=== PATIENT | female | born 1955 | race American Indian/Alaskan Native ===

== ENCOUNTER 2017-01-25 03:22 | Inpatient (IN) | payer MEDICARE, MEDICAID ==
[2017-01-25 03:22] VITALS: BMI 42.2
--- NOTE | 2017-01-25 03:37 | C.PDOC ---
History Of Present Illness The patient presents to the ED as a transfer from [facility]. Patient has been medically cleared under diagnosis of depression and has been accepted by Dr. Perry. Patient denies suicidal/homicidal ideation at this time. Time Seen by Provider: 01/25/17 03:35 Chief Complaint (Nursing): Psychiatric Evaluation History Per: Patient History/Exam Limitations: no limitations Onset/Duration Of Symptoms: Hrs Current Symptoms Are (Timing): Still Present Suicide/Self Injury Attempted (Context): None Modifying Factor(s): None Severity: Mild Pain Scale Rating Of: 2 Associated Symptoms: Depression. denies: Suicidal Thoughts, Suicidal Plan Involuntary Hold By: None Recent travel outside of the [place]: No Additional History Per: Patient Past Medical History Reviewed: Historical Data, Nursing Documentation, Vital Signs Vital Signs: Last Vital Signs Temp 98.2 F 01/25/17 03:29 Pulse 67 01/25/17 03:29 Resp 18 01/25/17 03:29 BP 122/68 01/25/17 03:29 Pulse Ox 98 01/25/17 03:44 - Medical History PMH: Anxiety, Arthritis, Depression, Gall Bladder Disease (gall stones), HTN Surgical History: Cholecystectomy - [facility] GROUP PSYCHOTHERAPY (07/07/16) INDIVIDUAL PSYCHOTHERAPY, COGNITIVE-BEHAVIORAL (07/07/16) MEDICATION MANAGEMENT (05/10/16) Family History: States: Unknown Family Hx - Social History Hx Alcohol Use: No Hx Substance Use: No - Immunization History Hx Tetanus Toxoid Vaccination: No Hx Influenza Vaccination: No Hx Pneumococcal Vaccination: No Review Of Systems Constitutional: Negative for: Fever, Chills Cardiovascular: Negative for: Chest Pain Respiratory: Negative for: Shortness of Breath Gastrointestinal: Negative for: Abdominal Pain Skin: Negative for: Rash, Lesions, Jaundice, Bruising Neurological: Negative for: Weakness, Numbness Psych: Positive for: Depression. Negative for: Suicidal ideation Physical Exam - Physical Exam Appears: Non-toxic, No Acute Distress Skin: Warm, Dry Head: Normacephalic Eye(s): bilateral: Normal Inspection Neck: Supple Chest: Symmetrical Cardiovascular: Rhythm Regular, No Murmur Respiratory: No Accessory Muscle Use Extremity: Normal ROM Neurological/Psych: Oriented x3 Gait: Steady ED Course And Treatment O2 Sat by Pulse Oximetry: 98 (on RA) Pulse Ox Interpretation: Normal Disposition Discussed With DrJamia: Cody Perry Comment: accepted the pt on his service and took over the care at 3:35 AM Doctor Will See Patient In The: Hospital Counseled Patient/Family Regarding: Studies Performed, Diagnosis - Disposition Referrals: Non [facility] Provider, [Primary Care Provider] - Disposition: HOSPITALIZED Disposition Time: 03:35 Condition: FAIR Forms: [facility] (Greek) - Clinical Impression Clinical Impression: Major depression - Scribe Statement The provider has reviewed the documentation as recorded by the Scribe (Regina García) Provider Attestation: All medical record entries made by the Scribe were at my direction and personally dictated by me. I have reviewed the chart and agree that the record accurately reflects my personal performance of the history, physical exam, medical decision making, and the department course for this patient. I have also personally directed, reviewed, and agree with the discharge instructions and disposition. Decision To Admit - Pt Status Changed To: Hospital Disposition Of: Inpatient - Admit Certification Admit to Inpatient:: After my assessment, the patient will require hospitalization for at least two midnights. This is because of the severity of symptoms shown, intensity of services needed, and/or the medical risk in this patient being treated as an outpatient. - InPatient: Physician Admission Certification: I certify that this patient requires 2 or more midnights of care for the following reason:: After my assessment, the patient will require hospitalization for at least two midnights. This is because of the severity of symptoms shown, intensity of services needed, and/or the medical risk in this patient being treated as an outpatient. - . Bed Request Type: Psychiatry Admitting Physician: Cody Perry Patient Diagnosis: Major depression
--- NOTE | 2017-01-25 05:29 | PCM.BM ---
<Kevin Harris - Last Filed: 01/25/17 05:26> Treatment Plan Problems - Problems identified on initial assessmt Depression Date Initiated: 01/25/17 Time Initiated: 04:45 Assessment reference: NA Status: Active Suicidal Ideation Date Initiated: 01/25/17 Time Initiated: 04:45 Assessment reference: NA Status: Active Treatment assets and liabiliti Patient Assests: adapts well, cooperative, motivated, self-reliant, ADL independent, negotiates basic needs, cognitively intact Patient Liabilities: physical pain, financial problems, poor support system, dietary restrictions, medical problems - Milieu Protocol Maintain good personal hygiene: daily Encourage regular showers, daily Remind patient to perform daily oral care, daily Assist patient to perform ADL's Maintain personal safety: every shift Educate patient to report safety concerns to staff, every shift Monitor environment for contraband/sharps Medication safety: Monitor for expected outcome, potential side effects: every shift, Assess barriers to learning: every shift, Assess readiness for medication education: every shift <Ernestina Lopez - Last Filed: 01/25/17 11:08> Family Contact Family involvement: Famliy/SO not involved - Goals for Treatment Patient goals for treatment: "I need help with my depression." Discharge/Continuing Care - Education Needs Education Needs: Patient Medication, Patient Coping Skills - Discharge Discharge Criteria: Tolerates medication w/o severe side effects, Free of Suicidal thoughts, Reduction of target symptoms Discharge to:: Home - Treatment Team Participation Discussed with Family/SO: No Was Patient/Family/SO present at Treatment Team Meeting: Yes <Cody Perry - Last Filed: 01/25/17 11:12> - Diagnosis (1) Major depression Status: Acute Interventions: 01/25/17 11:12 * Assess/adjust medications daily and /or as needed * See patient on an individual basis 7x/week to assess level of depressive behaviors and stability * Discuss risks, benefits, side effects and alternatives of medications *
--- NOTE | 2017-01-25 11:05 | PCM.PSYCH ---
Initial Psychiatric Evaluation - Initial Psychiatric Evaluation Type of Admission: Voluntary Legal Status: Capacity Chief Complaint (in patient's own words): "I'm anxious and depressed." History of Present Illness and Precipitating Events: Pt. is seen, chart reviewed, case discussed with staff. Pt. is a 61 y/o female who is a transfer from [facility] for depression. Pt. states she always had depression and anxiety, and her condition became worse during the past month when her landlord demanded she move out of the house by 01/27/17. Pt. has history of 3 hospitalizations for depression and anxiety: [place] [facility] [place] last year and [facility] [place] ago ( unspecified). Pt. states she is unable to sleep and feels hopeless and helpless. She reports to having racing thoughts. Pt. denies any change in her interest and denies elevated mood. Pt. denies visual and auditory hallucinations and denies homicidal ideation. She admits to having suicidal ideation just last week, but did not follow through with a plan. She claims she attempted suicide once 1.5 yrs. ago, when she tried to overdose on her pills. Pt. denies use of heroin, cocaine, and marijuana, cigarettes, and alcohol. After care discussed. Pt. says the most important task is to find new housing. PMHx: arthritis (uses cane), DM, HTN, UTI, cataracts Past Psych Hx: 3 inpatient--[facility], [facility] Fam Hx: denies, except nephew has drug-related problems Allergies: denies Social: ; 4 children (49, 44, 42, 31 y/o); lives alone; unemployed Past Psychiatric History - Past Psychiatric History Previous Treatment History: Inpatient Pertinent Medical Hx (Current Medical&Sleep Prob, Allergies): Allergies Allergy/AdvReac Type Severity Reaction Status Date / Time No Known Allergies Allergy Verified 01/25/17 03:28 No Known Home Med 01/24/17 Review of Systems - Review of Systems All systems: reviewed and no additional remarkable complaints except - Psychiatric Psychiatric: Anxiety, Depression, Irritability, Suicidal Ideation Mental Status Examination - Personal Presentation Personal Presentation: Looks stated age - Affect Affect: Constricted, Depressed - Motor Activity Motor Activity: Calm - Reliability in Providing Information Reliability in Providing Information: Good - Speech Speech: Organized - Mood Mood: Depressed, Anxious - Formal Thought Process Formal Thought Process: No Impairment - Obsessions/Compulsions Obsessions: No Compulsions: No - Cognitive Functions Orientation: Person, Place, Situation, Time Sensorium: Alert Attention/Concentration: Attentive Abstract Thinking: Holmen Estimate of Intelligence: Below average Judgement: Imparied, as evidence by: Poor judgement, Imparied, as evidence by: Lack of insight into illness - Risk Risk: Suicidal, Diminished functioning - Limitations Limitations: Living alone DSM 5 DX - DSM 5 DSM 5 Diagnosis: Major depressive disrordr recurrent moderate - Recommended/Plan of Treatment Treatment Recommendations and Plan of Treatment: Major depressive disorder recurrent moderate CBT Psychoeducation Supportive therapy, group therapy, individual therapy Paxil 10 mg PO QAM Neurontin 100 mg PO TID Atarax 25 mg PO Q6 PRN Trazodone 50 mg PO HS - Smoking Cessation Smoking Cessation Initiated: No
--- NOTE | 2017-01-26 10:08 | PCM.PYCHPN ---
Psychiatric Progress Note - Psychiatric Progress Note Patient seen today, length of contact: 15 min. Patient Chief Complaint: "I don't feel good today." Problems Identified/Issues Discussed: Pt. is seen, chart reviewed, and case discussed with staff. Pt. reports she slept well though the night, but woke up "not feeling so great. " No new symptoms reported, improving slowly, and needs more time to stabilize. No SEs from medications, risks discussed. After care discussed. Pt. will be discharged to [place]. Medication Change: Yes (start Paxil) Medical Record Reviewed: Yes Mental Status Examination - Cognitive Function Orientation: Person, Place, Situation, Time Memory: Intact Attention: Poor Concentration: Poor Association: WNL Fund of Knowledge: WNL - Mood Mood: Depressed, Anxious - Affect Affect: Constricted, Depressed - Speech Speech: Appropriate - Formal Thought Process Formal Thought Process: No Impairment - Suicidal Ideation Suicidal Ideation: Yes - Homicidal Ideation Homicidal Ideation: No Goal/Treatment Plan - Goal/Treatment Plan Need for Continued Stay: Remain at risks for inpatient hospitalization, Severe depression anxiety, Discharge may exacerbated symptoms Progress Toward Problem(s) and Goals/Treatment Plan: Major depressive disorder recurrent moderate CBT Psychoeducation Supportive therapy, group therapy, individual therapy Paxil 10 mg PO QAM Neurontin 100 mg PO TID Atarax 25 mg PO Q6 PRN Trazodone 50 mg PO HS
--- NOTE | 2017-01-27 10:54 | PCM.PYCHPN ---
Psychiatric Progress Note - Psychiatric Progress Note Patient seen today, length of contact: 15 min. Patient Chief Complaint: "I don't feel good today." Problems Identified/Issues Discussed: Pt. is seen, chart reviewed, and case discussed with staff. Pt. reports some improvement in her depressed mood and feelings of hopelessness. She reports improvement in her sleep. No new symptoms reported, improving slowly, and needs more time to stabilize. No SEs from medications, risks discussed. After care discussed. Pt. will be discharged to [place]. Medication Change: No (start Paxil) Medical Record Reviewed: Yes Mental Status Examination - Cognitive Function Orientation: Person, Place, Situation, Time Memory: Intact Attention: Poor Concentration: Poor Association: WNL Fund of Knowledge: WNL - Mood Mood: Depressed, Anxious - Affect Affect: Constricted, Depressed - Speech Speech: Appropriate - Formal Thought Process Formal Thought Process: No Impairment - Suicidal Ideation Suicidal Ideation: Yes - Homicidal Ideation Homicidal Ideation: No Goal/Treatment Plan - Goal/Treatment Plan Need for Continued Stay: Remain at risks for inpatient hospitalization, Severe depression anxiety, Discharge may exacerbated symptoms Progress Toward Problem(s) and Goals/Treatment Plan: Major depressive disorder recurrent moderate CBT Psychoeducation Supportive therapy, group therapy, individual therapy Paxil 10 mg PO QAM Neurontin 100 mg PO TID Atarax 25 mg PO Q6 PRN Trazodone 50 mg PO HS - Smoking Cessation Smoking Cessation Initiated: No
--- NOTE | 2017-01-28 18:43 | PCM.PYCHPN ---
Psychiatric Progress Note - Psychiatric Progress Note Patient seen today, length of contact: 15 min. Patient Chief Complaint: I'm feeling better, less depressed. Problems Identified/Issues Discussed: Patient seen. Chart reviewed. Case discussed with the staff. Issues related to illness and treatment were discussed with the patient. Reported compliant with treatment with no adverse affects. Tolerating treatment very well. Reported feeling better, less depressed, socializing, attending groups. Complaining about the some sleep difficulty. At the time of evaluation, patient was awake alert oriented 3, had no delusions , no auditory visual hallucinations, no suicidal ideations or homicidal ideations. Medical Problems: arthritis (uses cane), DM, HTN, UTI, cataracts Diagnostic Results: Reviewed DSM 5 Symptoms Update: Improving with treatment Medication Change: No Medical Record Reviewed: Yes Mental Status Examination - Cognitive Function Orientation: Person, Place, Situation, Time Memory: Intact Attention: WNL Concentration: WNL Association: WNL Fund of Knowledge: [facility] Decription of patient's judgement and insights: Fair - Mood Mood: Depressed (Less than before) - Affect Affect: Depressed - Speech Speech: Appropriate - Formal Thought Process Formal Thought Process: No Impairment - Suicidal Ideation Suicidal Ideation: No - Homicidal Ideation Homicidal Ideation: No Goal/Treatment Plan - Goal/Treatment Plan Need for Continued Stay: Remain at risks for inpatient hospitalization, Discharge may exacerbated symptoms, Severe functional impairment Progress Toward Problem(s) and Goals/Treatment Plan: Patient education Supportive therapy Continue treatment as before Estimated Date of D/C: 02/01/17 - Smoking Cessation Smoking Cessation Initiated: No
--- NOTE | 2017-01-29 14:42 | PCM.PYCHPN ---
Psychiatric Progress Note - Psychiatric Progress Note Patient seen today, length of contact: 15 min. Patient Chief Complaint: I'm feeling better, less depressed. Problems Identified/Issues Discussed: Patient seen. Chart reviewed. Case discussed with the staff. Issues related to illness and treatment were discussed with the patient. Reported compliant with treatment with no adverse affects. Tolerating treatment very well. Reported feeling better, less depressed, socializing, attending groups. At the time of evaluation, patient was awake alert oriented 3, had no delusions , no auditory visual hallucinations, no suicidal ideations or homicidal ideations. Medical Problems: arthritis (uses cane), DM, HTN, UTI, cataracts Diagnostic Results: Reviewed DSM 5 Symptoms Update: Improving with treatment Medication Change: No Medical Record Reviewed: Yes Mental Status Examination - Cognitive Function Orientation: Person, Place, Situation, Time Memory: Intact Attention: WNL Concentration: WNL Association: WNL Fund of Knowledge: [facility] Decription of patient's judgement and insights: Fair - Mood Mood: Depressed - Affect Affect: Depressed - Speech Speech: Appropriate - Formal Thought Process Formal Thought Process: No Impairment Psychotic Thoughts and Behaviors: None - Suicidal Ideation Suicidal Ideation: No - Homicidal Ideation Homicidal Ideation: No Goal/Treatment Plan - Goal/Treatment Plan Need for Continued Stay: Remain at risks for inpatient hospitalization, Discharge may exacerbated symptoms, Severe functional impairment Progress Toward Problem(s) and Goals/Treatment Plan: Patient education Supportive therapy Continue treatment as before Estimated Date of D/C: 02/01/17 - Smoking Cessation Smoking Cessation Initiated: No
--- NOTE | 2017-01-30 22:01 | PCM.PYCHPN ---
Psychiatric Progress Note - Psychiatric Progress Note Patient seen today, length of contact: 15 min. Patient Chief Complaint: "Today I felt suicidal" Problems Identified/Issues Discussed: The pt is seen, chart reviewed, case discussed with staff. Support given, CBT used How to cope with SI discussed - no plans or intentions She is likely stressed bc of d/c soon as she says she is likely homeless now She is also improving slowly and needs more time No SEs from medications, risks discussed. After care discussed Medication Change: Yes (increase paxil) Medical Record Reviewed: Yes Mental Status Examination - Cognitive Function Orientation: Person, Place, Situation, Time Memory: Intact Attention: WNL Concentration: WNL Association: WNL Fund of Knowledge: WNL - Mood Mood: Depressed - Affect Affect: Depressed - Speech Speech: Appropriate - Formal Thought Process Formal Thought Process: No Impairment - Suicidal Ideation Suicidal Ideation: No Plan: no SI as we spoke but she had some recently, no plans/intentions - Homicidal Ideation Homicidal Ideation: No Goal/Treatment Plan - Goal/Treatment Plan Need for Continued Stay: Remain at risks for inpatient hospitalization, Discharge may exacerbated symptoms, Severe functional impairment Progress Toward Problem(s) and Goals/Treatment Plan: Continue medications, increase Paxil Support and psychoeducation daily Attend groups and activities daily After care planning done: [facility] Estimated Date of D/C: 02/01/17
--- NOTE | 2017-01-31 13:27 | PCM.PYCHPN ---
Psychiatric Progress Note - Psychiatric Progress Note Patient seen today, length of contact: 15 min. Patient Chief Complaint: I'm stressed again because of my living situation Problems Identified/Issues Discussed: Patient seen. Chart reviewed. Case discussed with the staff. Issues related to illness and treatment were discussed with the patient. Reported compliant with treatment with no adverse affects. Tolerating treatment very well. Reported started feeling stressed again because of her living situation. Patient is becoming better slowly. Needs more time for stabilization. At the time of evaluation, patient was awake alert oriented 3, had no delusions , no auditory visual hallucinations, no suicidal ideations or homicidal ideations. Medical Problems: arthritis (uses cane), DM, HTN, UTI, cataracts Diagnostic Results: Reviewed Medication Change: No Medical Record Reviewed: Yes Mental Status Examination - Cognitive Function Orientation: Person, Place, Situation, Time Memory: Intact Attention: WNL Concentration: WNL Association: WNL Fund of Knowledge: [facility] Decription of patient's judgement and insights: Fair - Mood Mood: Depressed - Affect Affect: Depressed - Speech Speech: Appropriate - Formal Thought Process Formal Thought Process: No Impairment - Suicidal Ideation Suicidal Ideation: No - Homicidal Ideation Homicidal Ideation: No Goal/Treatment Plan - Goal/Treatment Plan Need for Continued Stay: Remain at risks for inpatient hospitalization, Discharge may exacerbated symptoms, Severe functional impairment Progress Toward Problem(s) and Goals/Treatment Plan: Patient education Supportive therapy Continue treatment as before Estimated Date of D/C: 02/02/17 - Smoking Cessation Smoking Cessation Initiated: No
--- NOTE | 2017-02-01 09:45 | PCM.BM ---
<Ernestina Lopez - Last Filed: 02/01/17 09:44> Treatment Plan Problems - Problems identified on initial assessmt Depression Date Initiated: 01/25/17 Time Initiated: 04:45 Assessment reference: NA Status: Active Suicidal Ideation Date Initiated: 01/25/17 Time Initiated: 04:45 Assessment reference: NA Status: Active Treatment assets and liabiliti Patient Assests: adapts well, cooperative, motivated, self-reliant, ADL independent, negotiates basic needs, cognitively intact Patient Liabilities: physical pain, financial problems, poor support system, dietary restrictions, medical problems - Milieu Protocol Maintain good personal hygiene: daily Encourage regular showers, daily Remind patient to perform daily oral care, daily Assist patient to perform ADL's Maintain personal safety: every shift Educate patient to report safety concerns to staff, every shift Monitor environment for contraband/sharps Medication safety: Monitor for expected outcome, potential side effects: every shift, Assess barriers to learning: every shift, Assess readiness for medication education: every shift Milieu Narrative: Patient education Supportive therapy Continue treatment as before Family Contact Family involvement: Kecia/SO not involved - Goals for Treatment Patient goals for treatment: "I need help with my depression." Discharge/Continuing Care - Education Needs Education Needs: Patient Medication, Patient Coping Skills - Discharge Discharge Criteria: Tolerates medication w/o severe side effects, Free of Suicidal thoughts, Reduction of target symptoms Discharge to:: Home - Treatment Team Participation Patient/Family/SO Statement: Patient education Supportive therapy Continue treatment as before Discussed with Family/SO: No Was Patient/Family/SO present at Treatment Team Meeting: Yes Treatment Plan Review Patient participation: Yes Family/SO/Caregiver participation: No - Problem Depression Date Initiated: 02/01/17 Time Initiated: 09:44 Progress toward outcomes: unchanged Suicidal Ideation Date Initiated: 02/01/17 Time Initiated: 09:44 Progress toward outcomes: improved <Lakeshia Sterling - Last Filed: 02/01/17 13:35> Treatment Plan Review - Discharge / Continuing Care Discharge to:: Home Behavioral Health Services: Outpatient therapy Health Needs: Doctor appointments, Medications/Rx <Rolan Hester - Last Filed: 02/02/17 13:21> - Diagnosis (1) Major depression Status: Acute Interventions: 01/25/17 11:12 * * Assess/adjust medications daily and /or as needed * See patient on an individual basis 7x/week to assess level of depressive behaviors and stability * Discuss risks, benefits, side effects and alternatives of medications * 02/02/17 13:21
--- NOTE | 2017-02-01 13:39 | PCM.PYCHPN ---
Psychiatric Progress Note - Psychiatric Progress Note Patient seen today, length of contact: 15 min. Patient Chief Complaint: I'm depressed and suicidal without any plan. Problems Identified/Issues Discussed: Patient seen. Chart reviewed. Case discussed with the staff. Issues related to illness and treatment were discussed with the patient. Reported compliant with treatment with no adverse affects. Tolerating treatment very well. Reported started feeling depressed and suicidal without any plan because of her living situation. Patient is thinking that she may be discharged on streets. Education provided. Patient is becoming better slowly. Needs more time for stabilization. At the time of evaluation, patient was awake alert oriented 3, had no delusions , no auditory visual hallucinations, no suicidal ideations or homicidal ideations. Medical Problems: arthritis (uses cane), DM, HTN, UTI, cataracts Diagnostic Results: Reviewed DSM 5 Symptoms Update: Some improvement with treatment Medication Change: Yes (Dose of Paxil increased to 30 mg) Medical Record Reviewed: Yes Mental Status Examination - Cognitive Function Orientation: Person, Place, Situation, Time Memory: Intact Attention: WNL Concentration: WNL Association: WNL Fund of Knowledge: [facility] Decription of patient's judgement and insights: Fair - Mood Mood: Depressed - Affect Affect: Depressed - Speech Speech: Appropriate - Formal Thought Process Formal Thought Process: No Impairment Psychotic Thoughts and Behaviors: None - Suicidal Ideation Suicidal Ideation: No - Homicidal Ideation Homicidal Ideation: No Goal/Treatment Plan - Goal/Treatment Plan Need for Continued Stay: Remain at risks for inpatient hospitalization, Discharge may exacerbated symptoms, Severe functional impairment Progress Toward Problem(s) and Goals/Treatment Plan: Patient education Supportive therapy Will increase the dose of Paxil to 30 mg Continue rest of the treatment as before Estimated Date of D/C: 02/03/17 - Smoking Cessation Smoking Cessation Initiated: No
--- NOTE | 2017-02-02 13:24 | PCM.PYCHPN ---
Psychiatric Progress Note - Psychiatric Progress Note Patient seen today, length of contact: 15 min. Patient Chief Complaint: I'm still depressed and suicidal without any plan. Problems Identified/Issues Discussed: Patient seen. Chart reviewed. Case discussed with the staff. Issues related to illness and treatment were discussed with the patient. Reported compliant with treatment with no adverse affects. Tolerating treatment very well. Reported still feeling depressed and suicidal without any plan because of her living situation. Staff reported that patient is very cooperative and social with other patients. Also reported that patient never mentioned any suicidal ideation to staff. Patient is thinking that she may be discharged on streets. Education provided. Patient is becoming better slowly. Needs more time for stabilization. At the time of evaluation, patient was awake alert oriented 3, had no delusions , no auditory visual hallucinations, no suicidal ideations or homicidal ideations. Medical Problems: arthritis (uses cane), DM, HTN, UTI, cataracts Diagnostic Results: Reviewed DSM 5 Symptoms Update: Improving with treatment Medication Change: No Medical Record Reviewed: Yes Mental Status Examination - Cognitive Function Orientation: Person, Place, Situation, Time Memory: Intact Attention: WNL Concentration: WNL Association: WNL Fund of Knowledge: [facility] Decription of patient's judgement and insights: Fair - Mood Mood: Depressed (Less than before) - Affect Affect: Depressed - Speech Speech: Appropriate - Formal Thought Process Formal Thought Process: No Impairment Psychotic Thoughts and Behaviors: None - Suicidal Ideation Suicidal Ideation: No - Homicidal Ideation Homicidal Ideation: No Goal/Treatment Plan - Goal/Treatment Plan Need for Continued Stay: Remain at risks for inpatient hospitalization, Discharge may exacerbated symptoms, Severe functional impairment Progress Toward Problem(s) and Goals/Treatment Plan: Patient education Supportive therapy Continue treatment as before Estimated Date of D/C: 02/03/17 - Smoking Cessation Smoking Cessation Initiated: No
--- NOTE | 2017-02-03 17:26 | PCM.PYCHPN ---
Psychiatric Progress Note - Psychiatric Progress Note Patient seen today, length of contact: 15 min. Patient Chief Complaint: I'm still depressed and suicidal without any plan. Problems Identified/Issues Discussed: Patient seen. Chart reviewed. Case discussed with the staff. Issues related to illness and treatment were discussed with the patient. Reported compliant with treatment with no adverse affects. Tolerating treatment very well. Reported still feeling depressed and suicidal without any plan because of her living situation. Staff again reported that patient is very cooperative and social with other patients. Also reported that patient never mentioned any suicidal ideation to staff. Patient is thinking that she may be discharged on streets. Education provided. Patient is becoming better slowly. Needs more time for stabilization. At the time of evaluation, patient was awake alert oriented 3, had no delusions , no auditory visual hallucinations, no suicidal ideations or homicidal ideations. Medical Problems: arthritis (uses cane), DM, HTN, UTI, cataracts Diagnostic Results: Reviewed DSM 5 Symptoms Update: Improving with treatment Medication Change: No Medical Record Reviewed: Yes Mental Status Examination - Cognitive Function Orientation: Person, Place, Situation, Time Memory: Intact Attention: WNL Concentration: WNL Association: [facility] Fund of Knowledge: [facility] Decription of patient's judgement and insights: Fair - Mood Mood: Depressed - Affect Affect: Other (Inappropriate, appeared euthymic) - Speech Speech: Appropriate - Formal Thought Process Formal Thought Process: No Impairment Psychotic Thoughts and Behaviors: None - Suicidal Ideation Suicidal Ideation: No - Homicidal Ideation Homicidal Ideation: No Goal/Treatment Plan - Goal/Treatment Plan Need for Continued Stay: Remain at risks for inpatient hospitalization, Discharge may exacerbated symptoms, Severe functional impairment Progress Toward Problem(s) and Goals/Treatment Plan: Patient education Supportive therapy Continue treatment as before Estimated Date of D/C: 02/06/17 - Smoking Cessation Smoking Cessation Initiated: No
[2017-02-04 07:17] VITALS: O2SAT 98
--- NOTE | 2017-02-04 15:30 | PCM.PYCHPN ---
Psychiatric Progress Note - Psychiatric Progress Note Patient seen today, length of contact: 15 min. Patient Chief Complaint: I'm still depressed Problems Identified/Issues Discussed: Patient was seen. Chart was reviewed important content noted. Nurse input received. Patient stated that she is still feeling depressed and has passive suicidal ideation, but no intent or plan. Pt stated that she is feeling safe in the hospital. No events overnight. Patient slept well and is eating well. Denies homicidal ideation. Patient does not report hallucinations. No delusions elicited. No paranoia elicited. Patient has remained in good clinical and behavioral control. Patient is finding medications beneficial and would like to continue with treatment plan. Patient appreciated that treatment team is trying to help. Medical Problems: DM DSM 5 Symptoms Update: Major depressive d/o Medication Change: Yes (increase Paxil 40mg po daily) Medical Record Reviewed: Yes Mental Status Examination - Cognitive Function Orientation: Person, Place, Situation, Time Memory: Intact Attention: WNL Concentration: WNL Association: WNL Fund of Knowledge: [facility]N Decription of patient's judgement and insights: fair/fair - Mood Mood: Depressed - Affect Affect: Other (dysphoric, and congruent with mood) - Speech Speech: Appropriate, Soft - Formal Thought Process Formal Thought Process: No Impairment - Suicidal Ideation Suicidal Ideation: No - Homicidal Ideation Homicidal Ideation: No Goal/Treatment Plan - Goal/Treatment Plan Need for Continued Stay: Remain at risks for inpatient hospitalization, Discharge may exacerbated symptoms, Severe functional impairment Progress Toward Problem(s) and Goals/Treatment Plan: Therapy in milieu Increase Paxil 40 mg po daily for depression Psychoeducation regarding medication, benefits, s/e, alternative choices were discussed with the pt. Pt verbalized understanding and wants to continue meds and treatment. Supportive therapy, group therapy, individual therapy pt still needs to stay to stabilize on meds Estimated Date of D/C: 02/06/17
--- NOTE | 2017-02-05 16:55 | PCM.PYCHPN ---
Psychiatric Progress Note - Psychiatric Progress Note Patient seen today, length of contact: 15 min. Patient Chief Complaint: "I'm feeling down" Problems Identified/Issues Discussed: Patient was seen. Chart was reviewed important content noted. Nurse input received that pt is down reggie to placement issue. Patient stated that she is feeling depressed due to placement issues after discharge. Pt stated that she had passive suicidal ideation, but no intent or plan. Pt stated that she is feeling safe in the hospital. No events overnight. Patient slept well and is eating well. Denies homicidal ideation. Patient does not report hallucinations. No delusions elicited. No paranoia elicited. Patient has remained in good clinical and behavioral control. Pt. is social and eating good in the unit. Patient is finding medications beneficial and would like to continue with treatment plan. Patient appreciated that treatment team is trying to help. Medical Problems: DM DSM 5 Symptoms Update: MDD, Recurrent moderate Medication Change: Yes (increase Paxil 40mg po daily) Medical Record Reviewed: Yes Mental Status Examination - Cognitive Function Orientation: Person, Place, Situation, Time Memory: Intact Attention: WNL Concentration: WNL Association: WN Fund of Knowledge: [facility] Decription of patient's judgement and insights: fair/fair - Mood Mood: Depressed - Affect Affect: Other (dysphoric, and congruent with mood) - Speech Speech: Appropriate, Soft - Formal Thought Process Formal Thought Process: No Impairment - Suicidal Ideation Suicidal Ideation: No - Homicidal Ideation Homicidal Ideation: No Goal/Treatment Plan - Goal/Treatment Plan Need for Continued Stay: Remain at risks for inpatient hospitalization, Discharge may exacerbated symptoms, Severe functional impairment Progress Toward Problem(s) and Goals/Treatment Plan: Therapy in milieu Increase Paxil 40 mg po daily for depression Psychoeducation regarding medication, benefits, s/e, alternative choices were discussed with the pt. Pt verbalized understanding and wants to continue meds and treatment. Supportive therapy, group therapy, individual therapy pt still needs to stay to stabilize on meds Estimated Date of D/C: 02/06/17
[2017-02-06 07:32] VITALS: BP 105/61; PULSE 78; RESP 18; TEMP 97.5
--- NOTE | 2017-02-06 15:50 | PCM.PYCHDC ---
Mental Status Examination - Mental Status Examination Orientation: Person, Place, Situation, Time Memory: Intact Mood: Neutral Affect: Other (Appropriate) Speech: Appropriate Attention: WNL Concentration: WNL Association: WNL Fund of Knowledge: WNL Formal Thought Process: No Impairment Description of patient's judgement and insight: Fair Psychotic Thoughts and Behaviors: None Suicidal Ideation: No Current Homicidal Ideation?: No Discharge Summary - Discharge Note Reason for Hospitalization: Depression Laboratory Data: Abnormal Lab Results 02/06/17 07:51 POC Glucose (mg/dL) 133 H Reviewed Consultations:: List each consultation separately and include: 1. Reason for request. 2. Findings. 3. Follow-up Consultations: Reviewed Summary of Hospital Course include:: 1. Description of specific treatment plan utilized for patients during their course of treatmen. 2. Summarize the time- course for resolution of acute symptoms and/or regressed behaviors. 3. Describe issues identified and worked on during hospitalization. 4. Describe medication utilized. 5. Describe medical problems identified and treated. 6. Reassessment of suicide risk Summary of Hospital Course: Pt. is a 61 y/o female who is a transfer from [facility] for depression. Pt. states she always had depression and anxiety, and her condition became worse during the past month when her landlord demanded she move out of the house by 01/27/17. Pt. has history of 3 hospitalizations for depression and anxiety: [facility] last year and [facility] a while ago ( unspecified). Pt. states she is unable to sleep and feels hopeless and helpless. She reports to having racing thoughts. Pt. denies any change in her interest and denies elevated mood. Pt. denies visual and auditory hallucinations and denies homicidal ideation. She admits to having suicidal ideation just last week, but did not follow through with a plan. She claims she attempted suicide once 1.5 yrs. ago, when she tried to overdose on her pills. Pt. denies use of heroin, cocaine, and marijuana, cigarettes, and alcohol. After care discussed. Pt. says the most important task is to find new housing. PMHx: arthritis (uses cane), DM, HTN, UTI, cataracts Past Psych Hx: 3 inpatient--[facility], [facility] Fam Hx: denies, except nephew has drug-related problems Allergies: denies Social: ; 4 children (49, 44, 42, 31 y/o); lives alone; unemployed During her stay on the unit, patient was started on medications including Paxil , medication for medical reason and other when necessary medications. With the above treatment, patient started feeling better with some passive suicidal ideations without any intent or plan. The suicidal ideations or wish initiated with patient's living arrangements after discharge. Support was provided by psychiatrist and also social workers on the unit. Patient became stable with very less very mild passive suicidal ideations at times. Patient was very social on the unit. He participated in groups and other activities on the unit. With the above treatment, today patient started feeling much better, no suicidal ideations, was ready for discharge. Patient reported that she'll go to family after discharge from the hospital and then will find a place to live. At the time of evaluation and discharge, patient was awake alert oriented 3, no delusions, no auditory or visual hallucinations, no suicidal ideations or homicidal ideations. Patient was discharged in stable condition. - Diagnosis (1) Major depression Status: Acute - Final Diagnosis (DSM 5) Condition upon Discharge: FAIR Disposition: HOME/ ROUTINE Prescriptions/Medication Reconciliation: amLODIPine [Norvasc] 5 mg PO DAILY #30 tab Gabapentin [Neurontin] 100 mg PO TID #90 cap GlipiZIDE [Glucotrol] 10 mg PO ACB #30 tab PARoxetine [Paxil] 30 mg PO QAM #30 tab traZODone [Desyrel] 50 mg PO HS #30 tab - Smoking Cessation Smoking Cessation Medication prescribed: No - Antipsychotic Medications Pt discharged on 2 or more routine antipsychotic medications: No
== END 2017-02-06 02:40 | disposition home or self-care (01) | DRG 885 ==
LOC: SUPCPDRO 03:22 → C.ER 03:22 → C.5E 03:37
PROVIDERS: ADMIT Psychiatry & Neurology Psychiatry; ATTEND Psychiatry & Neurology Psychiatry
PROC: GZ3ZZZZ Medication Management (ICD-10-PCS; principal; 2017-01-25)
PROC: GZHZZZZ Group Psychotherapy (ICD-10-PCS; 2017-01-25)
PROC: GZ56ZZZ Individual Psychotherapy, Supportive (ICD-10-PCS; 2017-01-25)
DX: F33.1 Major depressive disorder, recurrent, moderate (principal); R45.851 Suicidal ideations; E11.9 Type 2 diabetes mellitus without complications; N39.0 Urinary tract infection, site not specified; I10 Essential (primary) hypertension; M19.90 Unspecified osteoarthritis, unspecified site; H26.9 Unspecified cataract; Z59.0 Homelessness; Z87.891 Personal history of nicotine dependence

== ENCOUNTER 2017-09-07 13:56 | Inpatient (IN) | payer MEDICARE, MEDICAID ==
[2017-09-07 13:57] VITALS: BMI 41.4
--- NOTE | 2017-09-07 14:39 | C.PDOC ---
History Of Present Illness Patient with history of Anxiety and Depression presents to ED with c/o increased depression and suicidal thought for 4 days. Patient reports she feels as if she wants to take some pills but currently has not ingested any. Patient denies homicidal ideation or any other complaints at this time. Time Seen by Provider: 09/07/17 14:35 Chief Complaint (Nursing): Anxiety History Per: Patient History/Exam Limitations: no limitations Onset/Duration Of Symptoms: Days Current Symptoms Are (Timing): Still Present Suicide/Self Injury Attempted (Context): None Past Medical History Reviewed: Historical Data, Nursing Documentation, Vital Signs Vital Signs: Last Vital Signs Temp 98.3 F 09/07/17 17:36 Pulse 64 09/07/17 17:36 Resp 18 09/07/17 17:36 BP 107/60 09/07/17 17:36 Pulse Ox 99 09/07/17 17:36 - Medical History PMH: Anxiety, Arthritis, Depression, Diabetes, Gall Bladder Disease (gall stones ), HTN Surgical History: Cholecystectomy - [facility] Procedures GROUP PSYCHOTHERAPY (01/25/17) INDIVIDUAL PSYCHOTHERAPY, COGNITIVE-BEHAVIORAL (07/07/16) INDIVIDUAL PSYCHOTHERAPY, SUPPORTIVE (01/25/17) MEDICATION MANAGEMENT (01/25/17) Family History: States: No Known Family Hx - Social History Hx Alcohol Use: No Hx Substance Use: No - Immunization History Hx Tetanus Toxoid Vaccination: No Hx Influenza Vaccination: No Hx Pneumococcal Vaccination: No Review Of Systems Constitutional: Negative for: Fever, Chills Cardiovascular: Negative for: Chest Pain Respiratory: Negative for: Shortness of Breath Gastrointestinal: Negative for: Nausea, Vomiting Skin: Negative for: Rash Psych: Positive for: Anxiety, Depression, Suicidal ideation Physical Exam - Physical Exam Appears: Non-toxic, No Acute Distress Skin: Warm, Dry, No Rash Head: Atraumatic, Normacephalic Oral Mucosa: Moist Neck: Normal ROM, Supple Cardiovascular: Rhythm Regular Respiratory: Normal Breath Sounds, No Rales, No Rhonchi, No Wheezing Gastrointestinal/Abdominal: Soft, No Tenderness, No Guarding, No Rebound Extremity: Normal ROM, Capillary Refill (<2 seconds) Neurological/Psych: Oriented x3, Normal Speech, Normal Cognition ED Course And Treatment - Laboratory Results Result Diagrams: 09/07/17 15:14 09/07/17 15:41 O2 Sat by Pulse Oximetry: 99 (RA) Pulse Ox Interpretation: Normal Medical Decision Making Medical Decision Making: The patient is medically cleared for psych eval and possible admission. Progress: Patient admitted under Dr. 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 - Scribe Statement The provider has reviewed the documentation as recorded by the Theoibkira Stratton All medical record entries made by the Beltran were at my direction and personally dictated by me. I have reviewed the chart and agree that the record accurately reflects my personal performance of the history, physical exam, medical decision making, and the department course for this patient. I have also personally directed, reviewed, and agree with the discharge instructions and disposition.
[2017-09-07 14:52] LABS: SQUAMOUS EPITHIAL 10 /hpf (0-5); URINE BACTERIA OCC (<OCC); URINE BILIRUBIN NEGATIVE (NEGATIVE); URINE BLOOD NEGATIVE (NEGATIVE); URINE CLARITY Hazy (Clear); URINE COLOR Yellow (YELLOW); URINE GLUCOSE (UA) NORMAL (Normal); URINE LEUKOCYTE ESTERASE NEG Leu/uL (Negative); URINE PROTEIN NEGATIVE (NEGATIVE); URINE UROBILINOGEN NORMAL mg/dL (0.2-1.0)
[2017-09-07 15:16] LABS: BARBITURATES, UR NEGATIVE (NEGATIVE); BENZODIAZEPINES, UR NEGATIVE (NEGATIVE); OPIATES, UR NEGATIVE (NEGATIVE); PHENCYCLIDINE, UR NEGATIVE (NEGATIVE)
[2017-09-07 15:20] LABS: BASO % 0.7 % (0.0-2.0); EOS # 0.1 K/uL (0.0-0.7); EOS % 1.3 % (0.0-4.0); HEMOGLOBIN 13.4 g/dL (11.0-16.0); LYMPH # 1.5 K/uL (1.0-4.3); LYMPH % 35.3 % (20.0-40.0); MEAN CORPUSCULAR HEMOGLOBIN 29.3 pg (27.0-31.0); MEAN CORPUSCULAR HGB CONC 34.1 g/dL (33.0-37.0); MEAN PLATELET VOLUME 9.4 fL (7.2-11.7); MONO # 0.4 K/uL (0.0-0.8); MONO % 10.5 % (0.0-10.0); NEUT # 2.2 K/uL (1.8-7.0); NEUT % 52.2 % (50.0-75.0); NRBC % 0.2 % (0.0-2.0); RBC 4.55 Mil/uL (3.80-5.20); WHITE BLOOD COUNT 4.2 K/uL (4.8-10.8)
[2017-09-07 15:56] LABS: ALB/GLOB RATIO 0.9 (1.0-2.1); ALBUMIN 4.1 g/dL (3.5-5.0); ALT/SGPT 56 U/L (9-52); AST/SGOT 83 U/L (14-36); BLOOD UREA NITROGEN 10 mg/dL (7-17); CALCIUM 9.1 mg/dl (8.6-10.4); GFR AFRICAN-AMERICAN > 60; GFR NON-AFRICAN AMERICAN > 60
--- NOTE | 2017-09-07 19:10 | PCM.BM ---
Treatment Plan Problems - Problems identified on initial assessmt depression Date Initiated: 09/07/17 Time Initiated: 19:09 Assessment reference: NA Status: Active anxiety Date Initiated: 09/07/17 Time Initiated: : Assessment reference: NA Status: Active Treatment assets and liabiliti Patient Assests: adapts well, cooperative, educated, motivated, self-reliant, ADL independent, good support system, negotiates basic needs, cognitively intact , good interpersonal skills Patient Liabilities: live alone, physical pain, medical problems, other ( ambulate with cane)
--- NOTE | 2017-09-07 21:16 | PCM.BM ---
<Beatrice Ribera - Last Filed: 09/07/17 21:16> Treatment Plan Problems - Problems identified on initial assessmt depression Date Initiated: 09/07/17 Time Initiated: 19:09 Assessment reference: NA Status: Active anxiety Date Initiated: 09/07/17 Time Initiated: 19:09 Assessment reference: NA Status: Active Treatment assets and liabiliti Patient Assests: adapts well, cooperative, educated, motivated, self-reliant, ADL independent, good support system, negotiates basic needs, cognitively intact , good interpersonal skills Patient Liabilities: live alone, physical pain, medical problems, other ( ambulate with cane) - Milieu Protocol Maintain good personal hygiene: daily Encourage regular showers, daily Remind patient to perform daily oral care, daily Assist patient to perform ADL's Conduct patient checks and document Observation sheet: Q15 minutes Maintain personal safety: every shift Educate patient to report safety concerns to staff, every shift Monitor environment for contraband/sharps Medication safety: Monitor for expected outcome, potential side effects: every shift, Assess barriers to learning: every shift, Assess readiness for medication education: every shift <Cody Perry - Last Filed: 09/08/17 11:33> - Diagnosis (1) Major depression Status: Acute Interventions: 09/08/17 11:33 * Assess/adjust medications daily and /or as needed * See patient on an individual basis 7x/week to assess symptoms of depression * Monitor for side effects & effectiveness of medications * <Ernestina Lopez - Last Filed: 09/08/17 11:36> Family Contact Family involvement: Famliy/SO not involved - Goals for Treatment Patient goals for treatment: "I need help with my medical problems." Discharge/Continuing Care - Education Needs Education Needs: Patient Medication, Patient Coping Skills - Discharge Discharge Criteria: Tolerates medication w/o severe side effects, Reduction of target symptoms Discharge to:: Snf - Treatment Team Participation Discussed with Family/SO: No Was Patient/Family/SO present at Treatment Team Meeting: Yes
--- NOTE | 2017-09-08 10:11 | PCM.PSYCH ---
Initial Psychiatric Evaluation - Initial Psychiatric Evaluation Type of Admission: Voluntary Legal Status: Capacity Chief Complaint (in patient's own words): CC: "I'm really depressed" History of Present Illness and Precipitating Events: HPI: 62 year old female with PMHx of major depressive disorder presents with worsening depression, anxiety, and intermittent suicidal ideation over the last few weeks. Patient was last treated at [facility] May 2017 for depression. She does not have see a psychiatrist but does have a PMD for medication refills, last seen Jun 2017. Patient is unable to identify any event that may have triggered her worsening symptoms, but she states that she does not know if her current medications are working for her. She does not know the name of her mediations. She states she occasionally thinks of suicide by pill ingestion but has never acted on her thoughts. Associated symptoms include poor sleep, low energy during the day, loss of focus, and hearing her father calling her name two weeks ago. Denies visual hallucinations and paranoia. PsychHx: multiple admissions for depression, last hospitalized Apr 2017-May 2017 at [facility] as per HPI; follows up with a PMD for medication refills, not seeing an outside psychiatrist SocialHx: lives in a nursing home with 30 other women; former smoker; denies alcohol or drug use; used to work in food services PMHx: DM, HTN, arthritis Current Medications: Active Medications Generic Name Dose Route Start Last Admin Trade Name Freq PRN Reason Stop Dose Admin Amlodipine Besylate 5 mg 09/08/17 10:00 Norvasc PO DAILY DEON Gabapentin 100 mg 09/08/17 10:00 Neurontin PO TID DEON Hydroxyzine HCl 25 mg 09/07/17 18:12 Atarax PO Q6 PRN Anxiety Metformin HCl 500 mg 09/07/17 18:00 09/07/17 19:00 Glucophage PO 500 mg BID DEON Administration Paroxetine HCl 20 mg 09/08/17 10:00 Paxil PO QAM DEON Trazodone HCl 50 mg 09/07/17 18:00 09/07/17 21:49 Desyrel PO 50 mg HS PRN Administration Insomnia Past Psychiatric History - Past Psychiatric History Previous Treatment History: Inpatient Pertinent Medical Hx (Current Medical&Sleep Prob, Allergies): Allergies Allergy/AdvReac Type Severity Reaction Status Date / Time No Known Allergies Allergy Verified 09/07/17 14:11 Gabapentin [Neurontin] 100 mg PO TID #45 cap 05/11/17 Paroxetine HCl [Paxil] 40 mg PO HS #14 tablet 05/11/17 buPROPion [Wellbutrin] 100 mg PO BID #30 tab 05/11/17 traZODone [Desyrel] 50 mg PO HS #14 tab 05/11/17 Alprazolam [Xanax] 0.5 mg PO BID 09/04/17 Calcium Carbonate/Vitamin D3 [Calcium 600 + Vit D Tablet] 1 each PO DAILY Review of Systems - Review of Systems All systems: reviewed and no additional remarkable complaints except - Psychiatric Psychiatric: Abnormal Sleep Pattern, Anhedonia, Depression, Difficulty Concentrating, Hopelessness, Irritability, Suicidal Ideation Mental Status Examination - Personal Presentation Personal Presentation: Looks stated age - Affect Affect: Constricted, Depressed - Motor Activity Motor Activity: Calm - Reliability in Providing Information Reliability in Providing Information: Good - Speech Speech: Organized - Mood Mood: Depressed - Formal Thought Process Formal Thought Process: No Impairment - Hallucinations/Delusions Hallucinations: Auditory - Obsessions/Compulsions Obsessions: No Compulsions: No - Cognitive Functions Orientation: Person, Place, Situation, Time Sensorium: Alert Attention/Concentration: Attentive Abstract Thinking: [place] Estimate of Intelligence: Below average Judgement: Imparied, as evidence by: Poor judgement, Imparied, as evidence by: Lack of insight into illness - Risk Risk: Suicidal, Diminished functioning - Limitations Limitations: Living alone DSM 5 DX - DSM 5 DSM 5 Diagnosis: Major depressive disorder recurrent severe without psychotic features - Recommended/Plan of Treatment Treatment Recommendations and Plan of Treatment: Major depressive disorder recurrent severe without psychotic features -psychotherapy -supportive therapy, group therapy, individual therapy -Atarax 25 mg PO Q6 prn -Paroxetine 20 mg PO daily -Trazodone 50 mg PO QHS prn -Neurontin 100 mg PO tid Diabetes Mellitus -Metformin 50 mg PO bid HTN -Norvasc 5 mg PO daily - Smoking Cessation Smoking Cessation Initiated: No
--- NOTE | 2017-09-09 23:33 | PCM.PYCHPN ---
Psychiatric Progress Note - Psychiatric Progress Note Patient seen today, length of contact: 15 Minutes Mental Status Examination - Cognitive Function Orientation: Person, Place, Situation, Time - Mood Mood: Depressed - Affect Affect: Constricted, Depressed - Formal Thought Process Formal Thought Process: No Impairment - Homicidal Ideation Homicidal Ideation: No
--- NOTE | 2017-09-11 10:56 | PCM.PYCHPN ---
Psychiatric Progress Note - Psychiatric Progress Note Patient seen today, length of contact: 15 Minutes Patient Chief Complaint: CC: "I'm really depressed" Problems Identified/Issues Discussed: Patient seen and evaluated, chart reviewed and discussed with the nurse. Pt still reports depressed mood and she remained isolated and withdrawn. As per the staff, she remained isolated and confined to her room. She still reports at times feelings of helplessness. She is taking medications and denies any side effects Symptoms are improving but she needs more time for stabilization. Supportive therapy and psychoeducation were given. Medication Change: Yes Medical Record Reviewed: Yes Mental Status Examination - Cognitive Function Orientation: Person, Place, Situation, Time Memory: Intact Attention: WNL Concentration: Poor Association: WNL Fund of Knowledge: Poor - Mood Mood: Depressed, Anxious - Affect Affect: Constricted, Depressed - Speech Speech: Soft - Formal Thought Process Formal Thought Process: No Impairment - Suicidal Ideation Suicidal Ideation: No - Homicidal Ideation Homicidal Ideation: No Goal/Treatment Plan - Goal/Treatment Plan Need for Continued Stay: Severe depression anxiety, Severe functional impairment Progress Toward Problem(s) and Goals/Treatment Plan: Major depressive disorder recurrent severe without psychotic features -psychotherapy -supportive therapy, group therapy, individual therapy -Atarax 25 mg PO Q6 prn -Paroxetine 20 mg PO daily -Trazodone 50 mg PO QHS prn -Neurontin 100 mg PO tid Diabetes Mellitus -Metformin 50 mg PO bid HTN -Norvasc 5 mg PO daily - Smoking Cessation Smoking Cessation Initiated: No
--- NOTE | 2017-09-12 10:29 | PCM.PYCHPN ---
Psychiatric Progress Note - Psychiatric Progress Note Patient seen today, length of contact: 16 Minutes Patient Chief Complaint: CC: "I'm not feeling too good" Problems Identified/Issues Discussed: The pt is seen, chart reviewed, case discussed with staff. The pt is compliant with medications and reports no side-effects. Symptoms are improving but needs more time to stabilize. After care discussed, support and psychoeducation given. Patient states she is experiencing a headache and stomachache, as well as depression and anxiety She did not sleep well, she reported waking up throughout the night Medication Change: Yes Medical Record Reviewed: Yes Mental Status Examination - Cognitive Function Orientation: Person, Place, Situation, Time Memory: Intact Attention: WNL Concentration: WNL Association: WNL Fund of Knowledge: Poor - Mood Mood: Depressed, Anxious - Affect Affect: Constricted, Depressed - Speech Speech: Soft - Formal Thought Process Formal Thought Process: No Impairment - Suicidal Ideation Suicidal Ideation: No - Homicidal Ideation Homicidal Ideation: No Goal/Treatment Plan - Goal/Treatment Plan Need for Continued Stay: Severe depression anxiety, Severe functional impairment Progress Toward Problem(s) and Goals/Treatment Plan: Major depressive disorder recurrent severe without psychotic features -psychotherapy -supportive therapy, group therapy, individual therapy -Atarax 25 mg PO Q6 prn -Paroxetine 20 mg PO daily -Trazodone 50 mg PO QHS prn -Neurontin 100 mg PO tid Diabetes Mellitus -Metformin 50 mg PO bid HTN -Norvasc 5 mg PO daily - Smoking Cessation Smoking Cessation Initiated: No
--- NOTE | 2017-09-14 13:09 | PCM.PYCHPN ---
Psychiatric Progress Note - Psychiatric Progress Note Patient seen today, length of contact: 16 Minutes Patient Chief Complaint: CC: "I'm not feeling too good" Problems Identified/Issues Discussed: Patient seen and evaluated, chart reviewed and discussed with the nurse. Pt reports improvement in her depressed mood and reports improvement in her feelings of hopelessness and helplessness. She started coming out of her room and she has started socializing. She is taking medications and denies any side effects Symptoms are improving but she needs more time for stabilization. Supportive therapy and psychoeducation were given. Medication Change: Yes (Increase Paxil) Medical Record Reviewed: Yes Mental Status Examination - Cognitive Function Orientation: Person, Place, Situation, Time Memory: Intact Attention: WNL Concentration: WNL Association: WNL Fund of Knowledge: Poor - Mood Mood: Depressed, Anxious - Affect Affect: Constricted, Depressed - Speech Speech: Soft - Formal Thought Process Formal Thought Process: No Impairment - Suicidal Ideation Suicidal Ideation: No - Homicidal Ideation Homicidal Ideation: No Goal/Treatment Plan - Goal/Treatment Plan Need for Continued Stay: Severe depression anxiety, Severe functional impairment Progress Toward Problem(s) and Goals/Treatment Plan: Major depressive disorder recurrent severe without psychotic features -psychotherapy -supportive therapy, group therapy, individual therapy -Atarax 25 mg PO Q6 prn -Paroxetine 40 mg PO daily -Trazodone 100 mg PO QHS prn -Neurontin 100 mg PO tid Diabetes Mellitus -Metformin 50 mg PO bid HTN -Norvasc 5 mg PO daily - Smoking Cessation Smoking Cessation Initiated: No
--- NOTE | 2017-09-15 10:35 | PCM.PYCHPN ---
Psychiatric Progress Note - Psychiatric Progress Note Patient seen today, length of contact: 16 Minutes Patient Chief Complaint: CC: "I'm feeling little better' Problems Identified/Issues Discussed: Patient seen and evaluated, chart reviewed and discussed with the nurse. Pt reports some improvement in her depressed mood and reports anxiety. She started coming out of her room and she has started socializing. She is taking medications and denies any side effects Symptoms are improving but she needs more time for stabilization. Supportive therapy and psychoeducation were given. Medication Change: Yes (Increase Paxil) Medical Record Reviewed: Yes Mental Status Examination - Cognitive Function Orientation: Person, Place, Situation, Time Memory: Intact Attention: WNL Concentration: WNL Association: WNL Fund of Knowledge: Poor - Mood Mood: Depressed, Anxious - Affect Affect: Constricted, Depressed - Speech Speech: Soft - Formal Thought Process Formal Thought Process: No Impairment - Suicidal Ideation Suicidal Ideation: No - Homicidal Ideation Homicidal Ideation: No Goal/Treatment Plan - Goal/Treatment Plan Need for Continued Stay: Severe depression anxiety, Severe functional impairment Progress Toward Problem(s) and Goals/Treatment Plan: Major depressive disorder recurrent severe without psychotic features -psychotherapy -supportive therapy, group therapy, individual therapy -Atarax 25 mg PO Q6 prn -Paroxetine 40 mg PO daily -Trazodone 100 mg PO QHS prn -Neurontin 300 mg PO bid Diabetes Mellitus -Metformin 50 mg PO bid HTN -Norvasc 5 mg PO daily - Smoking Cessation Smoking Cessation Initiated: No
--- NOTE | 2017-09-16 13:00 | PCM.PYCHPN ---
Psychiatric Progress Note - Psychiatric Progress Note Patient seen today, length of contact: 16 Minutes Problems Identified/Issues Discussed: The pt is seen, chart reviewed, case discussed with staff. Support given, psychoed given No new symptoms reported, improving slowly and needs more time Still c/o SI vaguely and feeling "a little" depressed No SEs from medications, risks discussed. After care discussed but she doesn't seem to want to leave here Medication Change: No Medical Record Reviewed: Yes Mental Status Examination - Cognitive Function Orientation: Person, Place, Situation, Time Memory: Intact Attention: WNL Concentration: WNL Association: WNL Fund of Knowledge: Poor - Mood Mood: Depressed, Anxious - Affect Affect: Constricted, Depressed - Speech Speech: Soft - Formal Thought Process Formal Thought Process: No Impairment - Suicidal Ideation Suicidal Ideation: No - Homicidal Ideation Homicidal Ideation: No Goal/Treatment Plan - Goal/Treatment Plan Need for Continued Stay: Severe depression anxiety, Discharge may exacerbated symptoms, Severe functional impairment Progress Toward Problem(s) and Goals/Treatment Plan: Continue medications Support and psychoeducation daily Attend groups and activities daily After care planning by MAGDA
[2017-09-17] MEDS ORDERED: Psyllium Packet PO PRN (01:27)
[2017-09-17] MEDS ORDERED: Magnesium Hydroxide Susp 30 ml UD PO ONE (12:30)
[2017-09-18 07:34] VITALS: O2SAT 97
--- NOTE | 2017-09-18 10:27 | PCM.PYCHPN ---
Psychiatric Progress Note - Psychiatric Progress Note Patient seen today, length of contact: 16 Minutes Patient Chief Complaint: CC: "I'm feeling little better' Problems Identified/Issues Discussed: Patient seen and evaluated, chart reviewed and discussed with the nurse. Pt reports some improvement in her depressed mood and reports anxiety. She started coming out of her room and she has started socializing. She is taking medications and denies any side effects Symptoms are improving but she needs more time for stabilization. Supportive therapy and psychoeducation were given. Medication Change: Yes (increase gabapentin) Medical Record Reviewed: Yes Mental Status Examination - Cognitive Function Orientation: Person, Place, Situation, Time Memory: Intact Attention: WNL Concentration: WNL Association: WNL Fund of Knowledge: Poor - Mood Mood: Depressed, Anxious - Affect Affect: Constricted, Depressed - Speech Speech: Soft - Formal Thought Process Formal Thought Process: No Impairment - Suicidal Ideation Suicidal Ideation: No - Homicidal Ideation Homicidal Ideation: No Goal/Treatment Plan - Goal/Treatment Plan Need for Continued Stay: Severe depression anxiety, Severe functional impairment Progress Toward Problem(s) and Goals/Treatment Plan: Major depressive disorder recurrent severe without psychotic features -psychotherapy -supportive therapy, group therapy, individual therapy -Atarax 25 mg PO Q6 prn -Paroxetine 40 mg PO daily -Trazodone 100 mg PO QHS prn -Neurontin 300 mg PO bid Diabetes Mellitus -Metformin 50 mg PO bid HTN -Norvasc 5 mg PO daily
--- NOTE | 2017-09-18 13:04 | PCM.PYCHPN ---
Psychiatric Progress Note - Psychiatric Progress Note Patient seen today, length of contact: 15 min Patient Chief Complaint: "Still depressed" Problems Identified/Issues Discussed: The pt is seen, chart reviewed, case discussed with staff. The pt is compliant with medications and reports no side-effects. Symptoms are improving but needs more time to stabilize. After care discussed, support and psychoeducation given. Medication Change: No Medical Record Reviewed: Yes Mental Status Examination - Cognitive Function Orientation: Person, Place, Situation, Time Memory: Intact Attention: WNL Concentration: WNL Association: WNL Fund of Knowledge: Poor - Mood Mood: Depressed, Anxious - Affect Affect: Constricted, Depressed - Speech Speech: Soft - Formal Thought Process Formal Thought Process: No Impairment - Suicidal Ideation Suicidal Ideation: No - Homicidal Ideation Homicidal Ideation: No Goal/Treatment Plan - Goal/Treatment Plan Need for Continued Stay: Severe depression anxiety, Discharge may exacerbated symptoms, Severe functional impairment Progress Toward Problem(s) and Goals/Treatment Plan: Continue medications Support and psychoeducation daily Attend groups and activities daily After care planning by MAGDA
--- NOTE | 2017-09-19 10:17 | PCM.PYCHPN ---
Psychiatric Progress Note - Psychiatric Progress Note Patient seen today, length of contact: 15 min Patient Chief Complaint: CC: "I'm feeling little better' Problems Identified/Issues Discussed: Patient seen and evaluated, chart reviewed and discussed with the nurse. Pt reports some improvement in her depressed mood and reports anxiety. She started coming out of her room and she has started socializing. She is taking medications and denies any side effects Symptoms are improving but she needs more time for stabilization. Supportive therapy and psychoeducation were given. Medication Change: No Medical Record Reviewed: Yes Mental Status Examination - Cognitive Function Orientation: Person, Place, Situation, Time Memory: Intact Attention: WNL Concentration: WNL Association: WNL Fund of Knowledge: Poor - Mood Mood: Depressed, Anxious - Affect Affect: Constricted, Depressed - Speech Speech: Soft - Formal Thought Process Formal Thought Process: No Impairment - Suicidal Ideation Suicidal Ideation: No - Homicidal Ideation Homicidal Ideation: No Goal/Treatment Plan - Goal/Treatment Plan Need for Continued Stay: Severe depression anxiety, Discharge may exacerbated symptoms, Severe functional impairment Progress Toward Problem(s) and Goals/Treatment Plan: Major depressive disorder recurrent severe without psychotic features -psychotherapy -supportive therapy, group therapy, individual therapy -Atarax 25 mg PO Q6 prn -Paroxetine 40 mg PO daily -Trazodone 100 mg PO QHS prn -Neurontin 300 mg PO bid Diabetes Mellitus -Metformin 50 mg PO bid HTN -Norvasc 5 mg PO daily
[2017-09-20 06:29] VITALS: BP 104/62; PULSE 67; RESP 18; TEMP 98.2
--- NOTE | 2017-09-20 10:29 | PCM.PYCHDC ---
Mental Status Examination - Mental Status Examination Orientation: Person, Place, Situation, Time Memory: Intact Mood: Neutral Affect: Constricted Speech: Soft Attention: WNL Concentration: WNL Association: WNL Fund of Knowledge: WNL Formal Thought Process: No Impairment Description of patient's judgement and insight: good, fair Psychotic Thoughts and Behaviors: denies any AVH Suicidal Ideation: No Current Homicidal Ideation?: No Discharge Summary - Discharge Note Reason for Hospitalization: HPI: 62 year old female with PMHx of major depressive disorder presents with worsening depression, anxiety, and intermittent suicidal ideation over the last few weeks. Patient was last treated at [facility] May 2017 for depression. She does not have see a psychiatrist but does have a PMD for medication refills, last seen Jun 2017. Patient is unable to identify any event that may have triggered her worsening symptoms, but she states that she does not know if her current medications are working for her. She does not know the name of her mediations. She states she occasionally thinks of suicide by pill ingestion but has never acted on her thoughts. Associated symptoms include poor sleep, low energy during the day, loss of focus, and hearing her father calling her name two weeks ago. Denies visual hallucinations and paranoia. Laboratory Data: Abnormal Lab Results 09/19/17 09/20/17 16:40 07:39 POC Glucose (mg/dL) 119 H 102 Consultations:: List each consultation separately and include: 1. Reason for request. 2. Findings. 3. Follow-up Summary of Hospital Course include:: 1. Description of specific treatment plan utilized for patients during their course of treatmen. 2. Summarize the time- course for resolution of acute symptoms and/or regressed behaviors. 3. Describe issues identified and worked on during hospitalization. 4. Describe medication utilized. 5. Describe medical problems identified and treated. 6. Reassessment of suicide risk Summary of Hospital Course: During the course of her stay, patient (pt) started progressively improving and she no longer remained anxious, depressed and suicidal. Her mood was getting better and she started attending groups and meetings and started socializing. The doses of her medications were maximized and patient denied any feelings of hopelessness, helplessness, and worthlessness, denied any problem with the sleep or appetite, denied suicidal ideation or homicidal ideation. Pt denied any auditory or visual hallucinations. Patient reported improvement in her mood and tolerated these medications very well and denied any side effects. Pt is to return to [facility] outpatient program for treatment. - Diagnosis (1) Major depression Status: Acute - Final Diagnosis (DSM 5) Condition upon Discharge: GOOD DSM 5: Major depressive disorder recurrent severe without psychotic features Disposition: HOME/ ROUTINE Follow-up Treatment Plan: Education: Pt was educated and counseled about the risks and benefits of taking and not taking medications. Pt was educated and counseled about the risks of drinking and abusing drugs. Pt was educated and counseled to go to the ER or call 911 if pt develop suicidal ideation or homicidal ideation, worsening of symptoms or severe side effects of the meds. Prescriptions/Medication Reconciliation: amLODIPine [Norvasc] 5 mg PO DAILY #30 tab Gabapentin [Neurontin] 300 mg PO TID #90 cap metFORMIN [glucOPHAGE] 500 mg PO BID #60 tab PARoxetine [Paxil] 20 mg PO QAM #60 tab traZODone [Desyrel] 100 mg PO HS PRN #30 tab PRN Reason: Insomnia - Smoking Cessation Smoking Cessation Medication prescribed: No - Antipsychotic Medications Pt discharged on 2 or more routine antipsychotic medications: No
== END 2017-09-20 11:48 | disposition home or self-care (01) | DRG 885 ==
LOC: C.ER 13:56 → C.5E 16:57
PROVIDERS: ADMIT Psychiatry & Neurology Psychiatry; ATTEND Psychiatry & Neurology Psychiatry
PROC: GZHZZZZ Group Psychotherapy (ICD-10-PCS; principal; 2017-09-07)
PROC: GZ56ZZZ Individual Psychotherapy, Supportive (ICD-10-PCS; 2017-09-07)
DX: F33.2 Major depressive disorder, recurrent severe without psychotic features (principal); R45.851 Suicidal ideations; E11.9 Type 2 diabetes mellitus without complications; F41.9 Anxiety disorder, unspecified; I10 Essential (primary) hypertension; Z87.891 Personal history of nicotine dependence

== ENCOUNTER 2017-11-03 14:53 | Inpatient (IN) | payer MEDICARE, MEDICAID ==
[2017-11-03 14:53] VITALS: BMI 41.4
[2017-11-03 16:04] LABS: BASO # 0.1 K/uL (0.0-0.2); BASO % 1.1 % (0.0-2.0); EOS # 0.1 K/uL (0.0-0.7); EOS % 1.5 % (0.0-4.0); HEMOGLOBIN 12.4 g/dL (11.0-16.0); LYMPH # 1.9 K/uL (1.0-4.3); LYMPH % 31.2 % (20.0-40.0); MEAN CELL VOLUME 86.3 fL (81.0-99.0); MEAN CORPUSCULAR HEMOGLOBIN 28.8 pg (27.0-31.0); MEAN CORPUSCULAR HGB CONC 33.3 g/dL (33.0-37.0); MEAN PLATELET VOLUME 8.9 fL (7.2-11.7); MONO # 0.6 K/uL (0.0-0.8); MONO % 10.1 % (0.0-10.0); NEUT # 3.4 K/uL (1.8-7.0); NEUT % 56.1 % (50.0-75.0); NRBC % 0.1 % (0.0-2.0); RBC 4.32 Mil/uL (3.80-5.20)
[2017-11-03 16:22] LABS: ALBUMIN 3.8 g/dL (3.5-5.0); ALT/SGPT 36 U/L (9-52); AST/SGOT 35 U/L (14-36); BLOOD UREA NITROGEN 9 mg/dL (7-17); GFR AFRICAN-AMERICAN > 60; GFR NON-AFRICAN AMERICAN > 60
[2017-11-03 16:36] LABS: SQUAMOUS EPITHIAL 1 /hpf (0-5); URINE BACTERIA RARE (<OCC); URINE BILIRUBIN NEGATIVE (NEGATIVE); URINE BLOOD NEGATIVE (NEGATIVE); URINE CLARITY Clear (Clear); URINE COLOR Yellow (YELLOW); URINE GLUCOSE (UA) NORMAL (Normal); URINE LEUKOCYTE ESTERASE NEG Leu/uL (Negative); URINE PROTEIN NEGATIVE (NEGATIVE); URINE UROBILINOGEN NORMAL mg/dL (0.2-1.0)
[2017-11-03 16:47] LABS: BARBITURATES, UR NEGATIVE (NEGATIVE); BENZODIAZEPINES, UR NEGATIVE (NEGATIVE); OPIATES, UR NEGATIVE (NEGATIVE); PHENCYCLIDINE, UR NEGATIVE (NEGATIVE)
--- NOTE | 2017-11-03 16:49 | C.PDOC ---
History Of Present Illness 62 y/o female with history of Anxiety presents to ED with c/o increased anxiety for 1 week. Patient states she is compliant with medication, admits to Suicidal thoughts and Hearing voice. Patient denies HI, Visual Hallucinations or any other complaints at this time. Chief Complaint (Nursing): Psychiatric Evaluation History Per: Patient History/Exam Limitations: no limitations Onset/Duration Of Symptoms: Days Suicide/Self Injury Attempted (Context): None Modifying Factor(s): None Associated Symptoms: Anxiety, Suicidal Thoughts Past Medical History Reviewed: Historical Data, Nursing Documentation, Vital Signs Vital Signs: Last Vital Signs Temp 98.9 F 11/03/17 18:00 Pulse 70 11/03/17 20:17 Resp 18 11/03/17 20:17 BP 118/79 11/03/17 18:00 Pulse Ox 99 11/03/17 18:00 - Medical History PMH: Anxiety, Arthritis, Depression, Diabetes, Gall Bladder Disease (gall stones ), HTN Surgical History: Cholecystectomy - [facility] Procedures GROUP PSYCHOTHERAPY (09/07/17) INDIVIDUAL PSYCHOTHERAPY, COGNITIVE-BEHAVIORAL (07/07/16) INDIVIDUAL PSYCHOTHERAPY, SUPPORTIVE (09/07/17) MEDICATION MANAGEMENT (01/25/17) Family History: States: No Known Family Hx - Social History Hx Alcohol Use: No Hx Substance Use: No - Immunization History Hx Tetanus Toxoid Vaccination: No Hx Influenza Vaccination: No Hx Pneumococcal Vaccination: No Review Of Systems Constitutional: Negative for: Fever, Chills Cardiovascular: Negative for: Chest Pain Respiratory: Negative for: Shortness of Breath Gastrointestinal: Negative for: Nausea, Vomiting Skin: Negative for: Rash Psych: Positive for: Anxiety, Suicidal ideation. Negative for: Withdrawal Physical Exam - Physical Exam Appears: Non-toxic, No Acute Distress Skin: Warm, Dry, No Rash Head: Atraumatic, Normacephalic Eye(s): bilateral: Normal Inspection Oral Mucosa: Moist Neck: Normal ROM, Supple Cardiovascular: Rhythm Regular Respiratory: Normal Breath Sounds, No Rales, No Rhonchi, No Wheezing Gastrointestinal/Abdominal: Soft, No Tenderness, No Guarding, No Rebound Extremity: Normal ROM, Capillary Refill (<2 seconds) Neurological/Psych: Oriented x3, Normal Speech, Normal Cognition ED Course And Treatment - Laboratory Results Result Diagrams: 11/03/17 16:00 11/03/17 16:00 O2 Sat by Pulse Oximetry: 99 (RA) Pulse Ox Interpretation: Normal Disposition - Disposition Disposition: HOSPITALIZED Disposition Time: 17:40 Condition: STABLE - Clinical Impression Clinical Impression: Major depression - Theoibe Statement The provider has reviewed the documentation as recorded by the Theoibkira Stratton All medical record entries made by the Theoibkira were at my direction and personally dictated by me. I have reviewed the chart and agree that the record accurately reflects my personal performance of the history, physical exam, medical decision making, and the department course for this patient. I have also personally directed, reviewed, and agree with the discharge instructions and disposition.
--- NOTE | 2017-11-03 21:36 | PCM.BM ---
<Shanna Duarte - Last Filed: 11/03/17 21:30> Treatment Plan Problems - Problems identified on initial assessmt Depression Date Initiated: 11/03/17 Time Initiated: 19:00 Assessment reference: NA Status: Active Treatment assets and liabiliti Patient Assests: adapts well, cooperative, educated, motivated, self-reliant, ADL independent, good support system, negotiates basic needs, cognitively intact , good interpersonal skills Patient Liabilities: financial problems, poor support system, medical problems ( HTN, Diabetes, ) - Milieu Protocol Maintain good personal hygiene: daily Encourage regular showers, daily Remind patient to perform daily oral care, every shift Assist patient to perform ADL's Conduct patient checks and document Observation sheet: Q15 minutes Maintain personal safety: every shift Educate patient to report safety concerns to staff, every shift Monitor environment for contraband/sharps Medication safety: Monitor for expected outcome, potential side effects: every shift, Assess barriers to learning: every shift, Assess readiness for medication education: every shift <Cody Perry - Last Filed: 11/06/17 11:21> - Diagnosis (1) Major depression Status: Acute Interventions: 11/06/17 11:22 * Assess/adjust medications daily and /or as needed * See patient on an individual basis 7x/week to assess symptoms of depression * Monitor for side effects & effectiveness of medications * <Ernetsina Lopez - Last Filed: 11/06/17 13:35> Family Contact Family involvement: Famliy/SO not involved - Goals for Treatment Patient goals for treatment: "I need medication." Discharge/Continuing Care - Education Needs Education Needs: Patient Medication, Patient Coping Skills - Discharge Discharge Criteria: Tolerates medication w/o severe side effects, Reduction of target symptoms Discharge to:: Home - Treatment Team Participation Discussed with Family/SO: No Was Patient/Family/SO present at Treatment Team Meeting: Yes
[2017-11-04] MEDS: Loperamide Hydrochloride 1 mg/5 ml Cup PO PRN (14:20)
--- NOTE | 2017-11-04 19:21 | PCM.PSYCH ---
Initial Psychiatric Evaluation - Initial Psychiatric Evaluation Type of Admission: Voluntary Legal Status: Capacity Chief Complaint (in patient's own words): I have depression History of Present Illness and Precipitating Events: This is a 62 year old female with PMHx of major depressive disorder presents with worsening depression, anxiety, suicidal ideation over the last few weeks to OD on meds with commanding hallucinations. Patient had multiple hospitalization. Pt has long history of non compliance issues with the treatment plan and f/u after discharge. Patient stated that she is feeling depressed, with difficulty in focus, suicidal ideation with a plan to OD on her pill. She resported anhedonia, worthlessness, helpless and hopelessness. Pt contracted unit for safety. Associated symptoms include poor sleep, low energy during the day, loss of focus, and hearing her father calling her name. Denies visual hallucinations and paranoia. PsychHx: multiple admissions for depression SocialHx: lives in a correction with 30 other women; former smoker; denies alcohol or drug use; used to work in food services PMHx: DM, HTN, arthritis Current Medications: Active Medications Generic Name Dose Route Start Last Admin Trade Name Freq PRN Reason Stop Dose Admin Amlodipine Besylate 5 mg 11/04/17 10:00 11/04/17 10:01 Norvasc PO 5 mg DAILY DEON Administration Aripiprazole 5 mg 11/03/17 22:00 11/03/17 21:59 Abilify PO 5 mg HS DEON Administration Gabapentin 300 mg 11/04/17 10:00 11/04/17 17:32 Neurontin PO 300 mg TID DEON Administration Ibuprofen 400 mg 11/03/17 18:23 11/03/17 21:59 Motrin Tab PO 400 mg Q6 PRN Administration Pain, moderate (4-7) Loperamide HCl 2 mg 11/04/17 13:10 11/04/17 14:20 Imodium PO 2 mg TID PRN Administration Diarrhea Metformin HCl 500 mg 11/03/17 18:30 11/04/17 17:31 Glucophage PO 500 mg BID DEON Administration Paroxetine HCl 20 mg 11/04/17 10:00 11/04/17 10:01 Paxil PO 20 mg QAM DEON Administration Trazodone HCl 50 mg 11/03/17 18:23 11/03/17 21:59 Desyrel PO 50 mg HS PRN Administration Insomnia Past Psychiatric History - Past Psychiatric History Previous Treatment History: Inpatient Prior Psychiatric Treatment: multiple hospitalization At [facility]: [facility] Nature of Treatment: medication managementd History of Abuse: denied History of ETOH/Drug Use: denied Pertinent Medical Hx (Current Medical&Sleep Prob, Allergies): Allergies Allergy/AdvReac Type Severity Reaction Status Date / Time No Known Allergies Allergy Verified 11/03/17 15:03 Gabapentin [Neurontin] 100 mg PO TID #45 cap 05/11/17 Paroxetine HCl [Paxil] 40 mg PO HS #14 tablet 05/11/17 buPROPion [Wellbutrin] 100 mg PO BID #30 tab 05/11/17 traZODone [Desyrel] 50 mg PO HS #14 tab 05/11/17 Alprazolam [Xanax] 0.5 mg PO BID 09/04/17 Calcium Carbonate/Vitamin D3 [Calcium 600 + Vit D Tablet] 1 each PO DAILY Gabapentin [Neurontin] 300 mg PO TID #90 cap 09/20/17 PARoxetine [Paxil] 20 mg PO QAM #60 tab 09/20/17 amLODIPine [Norvasc] 5 mg PO DAILY #30 tab 09/20/17 metFORMIN [glucOPHAGE] 500 mg PO BID #60 tab 09/20/17 traZODone [Desyrel] 100 mg PO HS PRN #30 tab 09/20/17 Review of Systems - Review of Systems All systems: reviewed and no additional remarkable complaints except (please see HPI) Mental Status Examination - Personal Presentation Personal Presentation: Looks stated age, Dressed appropriate to season Additional comments: walking with walker - Affect Affect: Constricted - Motor Activity Motor Activity: Psychomotor Retardation - Reliability in Providing Information Reliability in Providing Information: Fair - Speech Speech: Organized - Mood Mood: Depressed, Anxious - Formal Thought Process Formal Thought Process: Hallucinations - Hallucinations/Delusions Hallucinations: Auditory - Obsessions/Compulsions Obsessions: None Compulsions: None - Cognitive Functions Orientation: Person, Place, Situation, Time Sensorium: Alert Attention/Concentration: Attentive Abstract Thinking: [place] Estimate of Intelligence: Average Judgement: Imparied, as evidence by: Poor judgement, Imparied, as evidence by: Lack of insight into illness Memory: Recent intact, as evidence by: Ability to recall events of the day, Recent intact, as evidence by: Other - Risk Risk: Suicidal, Falls - Strength & Assets Inventory Strength & Assets Inventory: Interests/hobbies, Cooperative - Limitations Limitations: Other (chronic mental illness) DSM 5 DX - DSM 5 DSM 5 Diagnosis: Major depressive disorder, recurrent, severe, with psychotic features, HTN DM - Recommended/Plan of Treatment Treatment Recommendations and Plan of Treatment: Major depressive disorder recurrent severe without psychotic features -psychotherapy -supportive therapy, group therapy, individual therapy -Atarax 25 mg PO Q6 prn -Paroxetine 20 mg PO daily for depression -Trazodone 50 mg PO QHS prn -Neurontin 100 mg PO tid -Abilify 5 mg po daily for psychosis -Recommend PHP after d/c Diabetes Mellitus -Metformin 50 mg PO bid HTN -Norvasc 5 mg PO daily Time spend 33 minutes Projected ELOS: 5-7 days Prognosis: good with meds Discharge Plan and Discharge Criteria: please see after care plan - Smoking Cessation Smoking Cessation Initiated: Yes
--- NOTE | 2017-11-05 14:55 | PCM.PYCHPN ---
Psychiatric Progress Note - Psychiatric Progress Note Patient seen today, length of contact: 15 minutes Patient Chief Complaint: I'm depressed Problems Identified/Issues Discussed: Pt was seen and evaluated. Pt is still depressed and has AH. Pt denied VH. she denied SI, HI, intent or plan. Pt encouraged to participate in group activities. Pt needs more time to stabilize. Pt is compliant with medication and denied side effects. Medication Change: No Medical Record Reviewed: Yes Mental Status Examination - Cognitive Function Orientation: Person, Place, Situation, Time Memory: Intact Attention: WNL Concentration: Poor Association: WNL Fund of Knowledge: WNL Decription of patient's judgement and insights: limited/limited - Mood Mood: Depressed, Anxious - Affect Affect: Constricted - Formal Thought Process Formal Thought Process: Hallucinations - Suicidal Ideation Suicidal Ideation: No Plan: denied - Homicidal Ideation Homicidal Ideation: No Plan: denied Goal/Treatment Plan - Goal/Treatment Plan Need for Continued Stay: Severe depression anxiety, Discharge may exacerbated symptoms Progress Toward Problem(s) and Goals/Treatment Plan: Major depressive disorder recurrent severe without psychotic features -psychotherapy -supportive therapy, group therapy, individual therapy -Atarax 25 mg PO Q6 prn -Paroxetine 20 mg PO daily for depression -Trazodone 50 mg PO QHS prn -Neurontin 100 mg PO tid -Abilify 5 mg po daily for psychosis -Recommend PHP after d/c Diabetes Mellitus -Metformin 50 mg PO bid HTN -Norvasc 5 mg PO daily Recommend PHP after discharge.
--- NOTE | 2017-11-06 10:04 | PCM.PYCHPN ---
Psychiatric Progress Note - Psychiatric Progress Note Patient seen today, length of contact: 15 minutes Patient Chief Complaint: I am feeling depressed.' Problems Identified/Issues Discussed: Patient seen and evaluated, chart reviewed and discussed with the nurse. She reports depressed and irritable mood, AH and paranoia. She remained isolated, confined and withdrawn. Patient is compliant with medications and denies any side effects. Symptoms are improving but need more time to stabilize. Support and psychoeducation given. Medication Change: No Medical Record Reviewed: Yes Mental Status Examination - Cognitive Function Orientation: Person, Place, Situation, Time Memory: Intact Attention: WNL Concentration: Poor Association: WNL Fund of Knowledge: WNL - Mood Mood: Depressed, Anxious - Affect Affect: Constricted - Formal Thought Process Formal Thought Process: Hallucinations - Suicidal Ideation Suicidal Ideation: No - Homicidal Ideation Homicidal Ideation: No Goal/Treatment Plan - Goal/Treatment Plan Need for Continued Stay: Severe depression anxiety, Discharge may exacerbated symptoms Progress Toward Problem(s) and Goals/Treatment Plan: Major depressive disorder recurrent severe with psychotic features -psychotherapy -supportive therapy, group therapy, individual therapy -Atarax 25 mg PO Q6 prn -Paroxetine 20 mg PO daily for depression -Trazodone 50 mg PO QHS prn -Neurontin 100 mg PO tid -Abilify 5 mg po daily for psychosis -Recommend PHP after d/c Diabetes Mellitus -Metformin 50 mg PO bid HTN -Norvasc 5 mg PO daily - Smoking Cessation Smoking Cessation Initiated: No
--- NOTE | 2017-11-08 06:01 | PCM.PYCHPN ---
Psychiatric Progress Note - Psychiatric Progress Note Patient seen today, length of contact: 15 minutes Patient Chief Complaint: I am feeling depressed.' Problems Identified/Issues Discussed: Patient seen and evaluated, chart reviewed and discussed with the nurse. As per the staff she is still isolated and depressed. She still reports depressed mood, AH and paranoia. She remained isolated, confined and withdrawn. Patient is compliant with medications and denies any side effects. Symptoms are improving but need more time to stabilize. Support and psychoeducation given. Medication Change: Yes (increase abilify) Medical Record Reviewed: Yes Mental Status Examination - Cognitive Function Orientation: Person, Place, Situation, Time Memory: Intact Attention: WNL Concentration: Poor Association: WNL Fund of Knowledge: WNL - Mood Mood: Depressed, Anxious - Affect Affect: Constricted - Formal Thought Process Formal Thought Process: Hallucinations - Suicidal Ideation Suicidal Ideation: No - Homicidal Ideation Homicidal Ideation: No Goal/Treatment Plan - Goal/Treatment Plan Need for Continued Stay: Severe depression anxiety, Discharge may exacerbated symptoms Progress Toward Problem(s) and Goals/Treatment Plan: Major depressive disorder recurrent severe with psychotic features -psychotherapy -supportive therapy, group therapy, individual therapy -Atarax 25 mg PO Q6 prn -Paroxetine 20 mg PO daily for depression -Trazodone 50 mg PO QHS prn -Neurontin 100 mg PO tid -Abilify 10 mg po daily for psychosis -Recommend PHP after d/c Diabetes Mellitus -Metformin 50 mg PO bid HTN -Norvasc 5 mg PO daily - Smoking Cessation Smoking Cessation Initiated: No
[2017-11-08] MEDS: Loperamide Hydrochloride 1 mg/5 ml Cup PO PRN (11:00)
--- NOTE | 2017-11-08 18:03 | PCM.PYCHPN ---
Psychiatric Progress Note - Psychiatric Progress Note Patient seen today, length of contact: 15 minutes Patient Chief Complaint: My depression is getting better Problems Identified/Issues Discussed: Pt was seen and evaluated. Pt is still depressed and has AH. Pt denied VH. she denied SI, HI, intent or plan. Pt encouraged to participate in group activities. Pt's depression is improving but, she needs more time to stabilize. Pt is compliant with medication and denied side effects. Medication Change: Yes (increase abilify) Medical Record Reviewed: Yes Mental Status Examination - Cognitive Function Orientation: Person, Place, Situation, Time Memory: Intact Attention: WNL Concentration: Poor Association: WNL Fund of Knowledge: WNL Decription of patient's judgement and insights: Improving/Improving - Mood Mood: Anxious - Affect Affect: Constricted - Speech Speech: Appropriate, Soft - Formal Thought Process Formal Thought Process: Hallucinations - Suicidal Ideation Suicidal Ideation: No Plan: denied - Homicidal Ideation Homicidal Ideation: No Plan: denied Goal/Treatment Plan - Goal/Treatment Plan Need for Continued Stay: Severe depression anxiety, Discharge may exacerbated symptoms Progress Toward Problem(s) and Goals/Treatment Plan: Major depressive disorder recurrent severe without psychotic features -psychotherapy -supportive therapy, group therapy, individual therapy -Atarax 25 mg PO Q6 prn -Paroxetine 20 mg PO daily for depression -Trazodone 50 mg PO QHS prn -Neurontin 100 mg PO tid -Abilify 10 mg po daily for psychosis -Recommend PHP after d/c Diabetes Mellitus -Metformin 50 mg PO bid HTN -Norvasc 5 mg PO daily Recommend PHP after discharge. Estimated Date of D/C: 11/09/17 - Smoking Cessation Smoking Cessation Initiated: Yes
--- NOTE | 2017-11-09 09:51 | PCM.PYCHPN ---
Psychiatric Progress Note - Psychiatric Progress Note Patient seen today, length of contact: 15 minutes Patient Chief Complaint: I am feeling depressed.' Problems Identified/Issues Discussed: Patient seen and evaluated, chart reviewed and discussed with the nurse. She still reports depressed mood, but reports improvement in the hallucinations AH and paranoia. As per the staff she is still isolated and depressed. She remained isolated, confined and withdrawn. Patient is compliant with medications and denies any side effects. Symptoms are improving but need more time to stabilize. Support and psychoeducation given. Medication Change: Yes (increase abilify) Medical Record Reviewed: Yes Mental Status Examination - Cognitive Function Orientation: Person, Place, Situation, Time Memory: Intact Attention: WNL Concentration: Poor Association: WNL Fund of Knowledge: WNL - Mood Mood: Anxious - Affect Affect: Constricted - Speech Speech: Appropriate, Soft - Formal Thought Process Formal Thought Process: Hallucinations - Suicidal Ideation Suicidal Ideation: No - Homicidal Ideation Homicidal Ideation: No Goal/Treatment Plan - Goal/Treatment Plan Need for Continued Stay: Severe depression anxiety, Discharge may exacerbated symptoms Progress Toward Problem(s) and Goals/Treatment Plan: Major depressive disorder recurrent severe with psychotic features -psychotherapy -supportive therapy, group therapy, individual therapy -Atarax 25 mg PO Q6 prn -Paroxetine 20 mg PO daily for depression -Trazodone 50 mg PO QHS prn -Neurontin 100 mg PO tid -Abilify 10 mg po daily for psychosis -Recommend PHP after d/c Diabetes Mellitus -Metformin 50 mg PO bid HTN -Norvasc 5 mg PO daily Estimated Date of D/C: 11/09/17
--- NOTE | 2017-11-10 14:33 | PCM.PYCHPN ---
Psychiatric Progress Note - Psychiatric Progress Note Patient seen today, length of contact: 15 minutes Patient Chief Complaint: I am feeling little better Problems Identified/Issues Discussed: Patient seen and evaluated, chart reviewed and discussed with the nurse. She still reports depressed mood, and reports some improvement in her stomach ache and headaches. She reports improvement in the hallucinations and paranoia. As per the staff she started socializing. She remained isolated, confined and withdrawn. Patient is compliant with medications and denies any side effects. Symptoms are improving but need more time to stabilize. Support and psychoeducation given. Medication Change: No Medical Record Reviewed: Yes Mental Status Examination - Cognitive Function Orientation: Person, Place, Situation, Time Memory: Intact Attention: WNL Concentration: WNL Association: WNL Fund of Knowledge: Poor - Mood Mood: Anxious - Affect Affect: Constricted - Speech Speech: Appropriate, Soft - Formal Thought Process Formal Thought Process: No Impairment - Suicidal Ideation Suicidal Ideation: No - Homicidal Ideation Homicidal Ideation: No Goal/Treatment Plan - Goal/Treatment Plan Need for Continued Stay: Severe depression anxiety, Discharge may exacerbated symptoms Progress Toward Problem(s) and Goals/Treatment Plan: Major depressive disorder recurrent severe with psychotic features -psychotherapy -supportive therapy, group therapy, individual therapy -Atarax 25 mg PO Q6 prn -Paroxetine 20 mg PO daily for depression -Trazodone 50 mg PO QHS prn -Neurontin 100 mg PO tid -Abilify 10 mg po daily for psychosis -Recommend PHP after d/c Diabetes Mellitus -Metformin 50 mg PO bid HTN -Norvasc 5 mg PO daily Estimated Date of D/C: 11/09/17 - Smoking Cessation Smoking Cessation Initiated: No
--- NOTE | 2017-11-11 14:34 | PCM.PYCHPN ---
Psychiatric Progress Note - Psychiatric Progress Note Patient seen today, length of contact: 15 minutes Patient Chief Complaint: I am not feeling better. I have some stomachache. Problems Identified/Issues Discussed: Patient seen, chart reviewed, case was discussed with the staff. Issues related to illness and treatment were discussed with the staff and the patient. Reported compliant with treatment with no adverse effects. Tolerating treatment very well. Patient reported not feeling better. Patient was calm and cooperative. After clear discussed with patient. At the time of evaluation, patient was awake alert oriented x3, no delusions, no auditory hallucination or visual hallucinations, no suicidal or homicidal ideations. Medical Problems: Diabetes mellitus Hypertension Arthritis Diagnostic Results: Reviewed DSM 5 Symptoms Update: Some improvement with treatment. Medication Change: No Medical Record Reviewed: Yes Mental Status Examination - Cognitive Function Orientation: Person, Place, Situation, Time Memory: Intact Attention: WNL Concentration: WNL Association: WNL Fund of Knowledge: [facility] Decription of patient's judgement and insights: Fair - Mood Mood: Depressed - Affect Affect: Other (Appeared euthymic) - Speech Speech: Appropriate, Soft - Formal Thought Process Formal Thought Process: No Impairment Psychotic Thoughts and Behaviors: None - Suicidal Ideation Suicidal Ideation: No - Homicidal Ideation Homicidal Ideation: No Goal/Treatment Plan - Goal/Treatment Plan Need for Continued Stay: Remain at risks for inpatient hospitalization, Discharge may exacerbated symptoms, Severe functional impairment Progress Toward Problem(s) and Goals/Treatment Plan: Improving. Patient education. Supportive therapy. Continue treatment as before. Estimated Date of D/C: 11/13/17 - Smoking Cessation Smoking Cessation Initiated: No
--- NOTE | 2017-11-12 17:31 | PCM.PYCHPN ---
Psychiatric Progress Note - Psychiatric Progress Note Patient seen today, length of contact: 15 minutes Patient Chief Complaint: I still have some stomachaches. Problems Identified/Issues Discussed: Patient seen, chart reviewed, case was discussed with the staff. Issues related to illness and treatment were discussed with the staff and the patient. Reported compliant with treatment with no adverse effects. Tolerating treatment very well. Patient reported feeling better. Still complaining about stomachaches. Patient was calm and cooperative. After clear discussed with patient. At the time of evaluation, patient was awake alert oriented x3, no delusions, no auditory hallucination or visual hallucinations, no suicidal or homicidal ideations. Medical Problems: Diabetes mellitus Hypertension Arthritis Diagnostic Results: Reviewed DSM 5 Symptoms Update: Improving with treatment Medication Change: No Medical Record Reviewed: Yes Mental Status Examination - Cognitive Function Orientation: Person, Place, Situation, Time Memory: Intact Attention: WNL Concentration: WNL Association: WNL Fund of Knowledge: [facility] Decription of patient's judgement and insights: Fair - Mood Mood: Depressed - Affect Affect: Other (Appeared euthymic) - Speech Speech: Appropriate - Formal Thought Process Formal Thought Process: No Impairment Psychotic Thoughts and Behaviors: None - Suicidal Ideation Suicidal Ideation: No - Homicidal Ideation Homicidal Ideation: No Goal/Treatment Plan - Goal/Treatment Plan Need for Continued Stay: Remain at risks for inpatient hospitalization, Discharge may exacerbated symptoms, Severe functional impairment Progress Toward Problem(s) and Goals/Treatment Plan: Improving. Patient education. Supportive therapy. Continue treatment as before. Patient will go to [facility] for follow-up care after discharge from the hospital. Estimated Date of D/C: 11/13/17 - Smoking Cessation Smoking Cessation Initiated: No
[2017-11-13 06:01] VITALS: O2SAT 99
--- NOTE | 2017-11-13 10:48 | PCM.PYCHPN ---
Psychiatric Progress Note - Psychiatric Progress Note Patient seen today, length of contact: 15 minutes Patient Chief Complaint: I am feeling better than before.' Problems Identified/Issues Discussed: Patient seen and evaluated, chart reviewed and discussed with the nurse. She reports some improvement in her depressed mood, and reports some improvement in her somatic symptoms. She reports improvement in the hallucinations and paranoia. Patient is compliant with medications and denies any side effects. Symptoms are improving but need more time to stabilize. Support and psychoeducation given. Medication Change: No Medical Record Reviewed: Yes Mental Status Examination - Cognitive Function Orientation: Person, Place, Situation, Time Memory: Intact Attention: WNL Concentration: WNL Association: WNL Fund of Knowledge: Poor - Mood Mood: Depressed - Affect Affect: Other (Appeared euthymic) - Speech Speech: Appropriate - Formal Thought Process Formal Thought Process: No Impairment - Suicidal Ideation Suicidal Ideation: No - Homicidal Ideation Homicidal Ideation: No Goal/Treatment Plan - Goal/Treatment Plan Need for Continued Stay: Remain at risks for inpatient hospitalization, Discharge may exacerbated symptoms, Severe functional impairment Progress Toward Problem(s) and Goals/Treatment Plan: Major depressive disorder recurrent severe with psychotic features -psychotherapy -supportive therapy, group therapy, individual therapy -Atarax 25 mg PO Q6 prn -Paroxetine 20 mg PO daily for depression -Trazodone 50 mg PO QHS prn -Neurontin 300 mg PO tid -Abilify 10 mg po daily for psychosis -Recommend PHP after d/c Diabetes Mellitus -Metformin 50 mg PO bid HTN -Norvasc 5 mg PO daily Estimated Date of D/C: 11/13/17
--- NOTE | 2017-11-14 10:03 | PCM.PYCHDC ---
Mental Status Examination - Mental Status Examination Orientation: Person, Place, Situation, Time Memory: Intact Mood: Neutral Affect: Constricted Speech: Soft Attention: WNL Concentration: WNL Association: WNL Fund of Knowledge: WNL Formal Thought Process: No Impairment Description of patient's judgement and insight: good, fair Psychotic Thoughts and Behaviors: denies any AVH Suicidal Ideation: No Current Homicidal Ideation?: No Discharge Summary - Discharge Note Reason for Hospitalization: This is a 62 year old female with PMHx of major depressive disorder presents with worsening depression, anxiety, suicidal ideation over the last few weeks to OD on meds with commanding hallucinations. Patient had multiple hospitalization. Pt has long history of non compliance issues with the treatment plan and f/u after discharge. Patient stated that she is feeling depressed, with difficulty in focus, suicidal ideation with a plan to OD on her pill. She resported anhedonia, worthlessness, helpless and hopelessness. Pt contracted unit for safety. Associated symptoms include poor sleep, low energy during the day, loss of focus, and hearing her father calling her name. Denies visual hallucinations and paranoia. PsychHx: multiple admissions for depression SocialHx: lives in a long term with 30 other women; former smoker; denies alcohol or drug use; used to work in food services PMHx: DM, HTN, arthritis Psychiatric History (includes Medical, Family, Personal Hx): medication managementd Laboratory Data: Abnormal Lab Results 11/13/17 11/14/17 16:45 07:21 POC Glucose (mg/dL) 94 95 Consultations:: List each consultation separately and include: 1. Reason for request. 2. Findings. 3. Follow-up Summary of Hospital Course include:: 1. Description of specific treatment plan utilized for patients during their course of treatmen. 2. Summarize the time- course for resolution of acute symptoms and/or regressed behaviors. 3. Describe issues identified and worked on during hospitalization. 4. Describe medication utilized. 5. Describe medical problems identified and treated. 6. Reassessment of suicide risk - Diagnosis (1) Major depression Current Visit: Yes Status: Acute - Final Diagnosis (DSM 5) Condition upon Discharge: STABLE DSM 5: Major depressive disorder, recurrent, severe, with psychotic features, Disposition: HOME/ ROUTINE Follow-up Treatment Plan: Major depressive disorder recurrent severe with psychotic features -psychotherapy -supportive therapy, group therapy, individual therapy -Atarax 25 mg PO Q6 prn -Paroxetine 20 mg PO daily for depression -Trazodone 50 mg PO QHS prn -Neurontin 300 mg PO tid -Abilify 10 mg po daily for psychosis -Recommend PHP after d/c Diabetes Mellitus -Metformin 50 mg PO bid HTN -Norvasc 5 mg PO daily Prescriptions/Medication Reconciliation: ARIPiprazole [Abilify] 10 mg PO HS #30 tab Gabapentin [Neurontin] 300 mg PO BID #60 cap PARoxetine [Paxil] 20 mg PO QAM #30 tab traZODone [Desyrel] 50 mg PO HS PRN #30 tab PRN Reason: Insomnia
[2017-11-14 10:13] VITALS: BP 110/74; PULSE 97; RESP 20; TEMP 97.6
== END 2017-11-06 02:30 | disposition home or self-care (01) | DRG 885 ==
LOC: C.ER 14:53 → C.5E 17:43
PROVIDERS: ADMIT Psychiatry & Neurology Psychiatry; ATTEND Psychiatry & Neurology Psychiatry
PROC: GZHZZZZ Group Psychotherapy (ICD-10-PCS; principal; 2017-11-03)
PROC: GZ56ZZZ Individual Psychotherapy, Supportive (ICD-10-PCS; 2017-11-03)
DX: F33.3 Major depressive disorder, recurrent, severe with psychotic symptoms (principal); R45.851 Suicidal ideations; E11.9 Type 2 diabetes mellitus without complications; F41.9 Anxiety disorder, unspecified; I10 Essential (primary) hypertension; M19.90 Unspecified osteoarthritis, unspecified site; Z87.891 Personal history of nicotine dependence; Z91.19 Patient's noncompliance with other medical treatment and regimen

== ENCOUNTER 2018-03-26 16:53 | Inpatient (IN) | payer MEDICARE, MEDICAID ==
[2018-03-26 16:53] VITALS: BMI 41.4
--- NOTE | 2018-03-26 17:31 | C.PDOC ---
History Of Present Illness 62 y/o female presents to the ER complaining of feeling depressed and anxious. Patient states that she felt like "taking pills today to hurt herself." Patient denies having homicidal ideation and other complaints at this time. <Oscar Castro - Last Filed: 03/26/18 18:53> History Per: Patient History/Exam Limitations: no limitations Onset/Duration Of Symptoms: Hrs Current Symptoms Are (Timing): Still Present Severity: Moderate <Oscar Castro - Last Filed: 03/26/18 18:53> <Hilary Kovacs - Last Filed: 03/26/18 20:00> Time Seen by Provider: 03/26/18 17:08 Chief Complaint (Nursing): Psychiatric Evaluation Past Medical History Reviewed: Historical Data, Nursing Documentation, Vital Signs Vital Signs: Last Vital Signs Temp 99 F 03/26/18 17:04 Pulse 70 03/26/18 17:04 Resp 18 03/26/18 17:04 BP 112/79 03/26/18 17:04 Pulse Ox 96 03/26/18 17:04 - Medical History PMH: Anxiety, Arthritis, Depression, Diabetes, Gall Bladder Disease (gall stones), HTN Denies: Hepatitis, HIV, Chronic Kidney Disease, Seizures, Sexually Transmitted Disease Surgical History: Cholecystectomy - [facility] GROUP PSYCHOTHERAPY (11/03/17) INDIVIDUAL PSYCHOTHERAPY, COGNITIVE-BEHAVIORAL (07/07/16) INDIVIDUAL PSYCHOTHERAPY, SUPPORTIVE (11/03/17) MEDICATION MANAGEMENT (01/25/17) Family History: States: No Known Family Hx - Social History Hx Alcohol Use: No Hx Substance Use: No - Immunization History Hx Tetanus Toxoid Vaccination: No Hx Influenza Vaccination: No Hx Pneumococcal Vaccination: No <Oscar Castro - Last Filed: 03/26/18 18:53> Vital Signs: Last Vital Signs Temp 99 F 03/26/18 17:04 Pulse 70 03/26/18 17:04 Resp 18 03/26/18 17:04 BP 112/79 03/26/18 17:04 Pulse Ox 96 03/26/18 18:54 - [facility] GROUP PSYCHOTHERAPY (11/03/17) INDIVIDUAL PSYCHOTHERAPY, COGNITIVE-BEHAVIORAL (07/07/16) INDIVIDUAL PSYCHOTHERAPY, SUPPORTIVE (11/03/17) MEDICATION MANAGEMENT (01/25/17) <Hilary Kovacs - Last Filed: 03/26/18 20:00> Review Of Systems Except As Marked, All Systems Reviewed And Found Negative. Constitutional: Negative for: Fever, Chills Psych: Positive for: Anxiety, Depression, Suicidal ideation <Oscar Castro - Last Filed: 03/26/18 18:53> Physical Exam - Physical Exam Appears: Non-toxic, No Acute Distress Skin: Normal Color, Warm, Dry Head: Atraumatic, Normacephalic Eye(s): bilateral: Normal Inspection Nose: Normal Oral Mucosa: Moist Neck: Supple Chest: Symmetrical Cardiovascular: Rhythm Regular Respiratory: Normal Breath Sounds, No Rales, No Rhonchi, No Wheezing Gastrointestinal/Abdominal: Normal Exam, Soft, No Tenderness, No Guarding, No Rebound Neurological/Psych: Oriented x3, Normal Speech <Oscar Castro - Last Filed: 03/26/18 18:53> ED Course And Treatment - Laboratory Results Result Diagrams: 03/26/18 17:52 03/26/18 17:52 O2 Sat by Pulse Oximetry: 96 (RA) Pulse Ox Interpretation: Normal <Oscar Castro - Last Filed: 03/26/18 18:53> - Laboratory Results Result Diagrams: 03/26/18 17:52 03/26/18 17:52 <Hilary Kovacs - Last Filed: 03/26/18 20:00> Medical Decision Making Medical Decision Making: pending medical clearance Plan: --Labs --UA 700: case endorsed to dr kovacs, pending ua, medical clearance, and final dispo. <Oscar Castro - Last Filed: 03/26/18 18:53> Disposition <Oscar Castro - Last Filed: 03/26/18 18:53> Discussed With : Catherine Mills Comment: accepted the pt on her service and took ovar the care at 7:57PM Doctor Will See Patient In The: Hospital Counseled Patient/Family Regarding: Studies Performed, Diagnosis - Disposition Disposition Time: 19:00 - POA Present On Arrival: Poor Glycemic Control <Hilary Kovacs - Last Filed: 03/26/18 20:00> - Disposition Disposition: HOSPITALIZED Condition: FAIR Forms: [facility] ([place]) - Clinical Impression Clinical Impression: Anxiety state, unspecified, Major depression - Scribe Statement The provider has reviewed the documentation as recorded by the Beltran Alvarenga Provider Attestation: All medical record entries made by the Theoibkira were at my direction and personally dictated by me. I have reviewed the chart and agree that the record accurately reflects my personal performance of the history, physical exam, medical decision making, and the department course for this patient. I have also personally directed, reviewed, and agree with the discharge instructions and d isposition. <Oscar Castro - Last Filed: 03/26/18 18:53> Decision To Admit <Oscar Castro - Last Filed: 03/26/18 18:53> - Pt Status Changed To: Hospital Disposition Of: Inpatient - Admit Certification Admit to Inpatient:: After my assessment, the patient will require hospitalization for at least two midnights. This is because of the severity of symptoms shown, intensity of services needed, and/or the medical risk in this patient being treated as an outpatient. - InPatient: Physician Admission Certification: I certify that this patient requires 2 or more midnights of care for the following reason:: After my assessment, the patient will require hospitalization for at least two midnights. This is because of the severity of symptoms shown, intensity of services needed, and/or the medical risk in this patient being treated as an outpatient. - . Bed Request Type: Psychiatry Admitting Physician: Catherine Mills <Hilary Kovacs - Last Filed: 03/26/18 20:00> - . Patient Diagnosis: Major depression, Anxiety state, unspecified
[2018-03-26 17:54] LABS: BASO # 0.1 K/uL (0.0-0.2); BASO % 2.1 % (0.0-2.0); EOS # 0.1 K/uL (0.0-0.7); EOS % 1.5 % (0.0-4.0); HEMOGLOBIN 13.3 g/dL (11.0-16.0); LYMPH # 1.8 K/uL (1.0-4.3); LYMPH % 31.5 % (20.0-40.0); MEAN CELL VOLUME 84.1 fL (81.0-99.0); MEAN CORPUSCULAR HEMOGLOBIN 28.4 pg (27.0-31.0); MEAN CORPUSCULAR HGB CONC 33.7 g/dL (33.0-37.0); MONO # 0.5 K/uL (0.0-0.8); MONO % 8.6 % (0.0-10.0); NEUT # 3.3 K/uL (1.8-7.0); NEUT % 56.3 % (50.0-75.0); RBC 4.67 Mil/uL (3.80-5.20); RED CELL DISTRIBUTION WIDTH 13.5 % (11.5-14.5); WHITE BLOOD COUNT 5.8 K/uL (4.8-10.8)
[2018-03-26 18:08] LABS: ACETAMINOPHEN < 10.0 ug/mL (10.0-30.0); SALICYLATE < 1.0 [, mg/dL 1]
[2018-03-26 18:10] LABS: ALBUMIN 4.1 g/dL (3.5-5.0); ALT/SGPT 27 U/L (9-52); AST/SGOT 28 U/L (14-36); BLOOD UREA NITROGEN 12 mg/dL (7-17); CALCIUM 9.1 mg/dl (8.6-10.4); GFR NON-AFRICAN AMERICAN > 60
[2018-03-26 19:07] LABS: SQUAMOUS EPITHIAL 16 /hpf (0-5); URINE BACTERIA OCC (<OCC); URINE BILIRUBIN NEGATIVE (NEGATIVE); URINE BLOOD NEGATIVE (NEGATIVE); URINE CLARITY Hazy (Clear); URINE COLOR Yellow (YELLOW); URINE GLUCOSE (UA) NORMAL (Normal); URINE LEUKOCYTE ESTERASE 2+ Leu/uL (Negative); URINE PROTEIN NEGATIVE (NEGATIVE); URINE UROBILINOGEN NORMAL mg/dL (0.2-1.0)
[2018-03-26 19:21] LABS: BARBITURATES, UR NEGATIVE (NEGATIVE); BENZODIAZEPINES, UR NEGATIVE (NEGATIVE); OPIATES, UR NEGATIVE (NEGATIVE); PHENCYCLIDINE, UR NEGATIVE (NEGATIVE)
--- NOTE | 2018-03-26 21:00 | PCM.BM ---
<Vinny Chu - Last Filed: 03/26/18 20:54> Treatment Plan Problems - Problems identified on initial assessmt Deperssion Date Initiated: 03/26/18 Time Initiated: 20:54 Assessment reference: NA Status: Active Treatment assets and liabiliti Patient Assests: adapts well, cooperative, educated, motivated, self-reliant, ADL independent, good support system, negotiates basic needs, cognitively intact, good interpersonal skills Patient Liabilities: live alone (Lives alone in fci in [facility]), financial problems, medical problems (Diabetes, Arthritis), other (Father one year ago) - Milieu Protocol Maintain good personal hygiene: daily Encourage regular showers, daily Remind patient to perform daily oral care, every shift Assist patient to perform ADL's Conduct patient checks and document Observation sheet: Q15 minutes (For safety) Maintain personal safety: every shift Educate patient to report safety concerns to staff, every shift Monitor environment for contraband/sharps Medication safety: Monitor for expected outcome, potential side effects: every shift, Assess barriers to learning: every shift, Assess readiness for medication education: every shift <Yanni Ngo - Last Filed: 03/28/18 16:05> Family Contact Family involvement: Patient does not wish Family/SO involvement Family contact: Patient declines to allow family contact at present - Goals for Treatment Patient goals for treatment: "I [facility] to go to [facility]." Discharge/Continuing Care - Education Needs Education Needs: Patient Medication, Patient Diagnosis/Disease Process, Patient Coping Skills, Patient Community resources - Discharge Discharge Criteria: Free of Suicidal thoughts, Normal sleep pattern, Ability to care for self, Reduction of target symptoms Discharge to:: Home - Treatment Team Participation Discussed with Family/SO: No Was Patient/Family/SO present at Treatment Team Meeting: Yes <Rolan Hester - Last Filed: 03/31/18 17:45> - Diagnosis (1) Major depressive disorder, recurrent severe without psychotic features Status: Acute Interventions: 03/31/18 17:44 * Assess/adjust medications daily and /or as needed * See patient on an individual basis 7x/week to assess status of hallucinations * Discuss risks, benefits, side effects and alternatives of medications
[2018-03-27 00:51] VITALS: O2SAT 96
--- NOTE | 2018-03-27 18:44 | PCM.PSYCH ---
Initial Psychiatric Evaluation - Initial Psychiatric Evaluation Type of Admission: Voluntary Legal Status: Capacity Chief Complaint (in patient's own words): I was depressed and suicidal. History of Present Illness and Precipitating Events: Patient is a 62 years old, single, unemployed, on disability, -[place] female with history of major depressive disorder, noncompliant with treatment was admitted due to worsening of depression and passive suicidal ideations with no plan. Patient reported that she had followed up at [facility] briefly, didn't have follow-up. Ran out of medication, started feeling depressed. Patient was unable to identify any event that may have triggered her worsening of depressive symptoms. She does not know the name of her mediations. She states she occasionally thinks of suicide by pill ingestion but has never acted on her thoughts. Associated symptoms include poor sleep, low energy during the day, loss of focus, and hearing her father calling her name at times. Denies visual hallucinations and paranoia. Denied any manic or anxiety symptoms. Denied any substance use including alcohol, cocaine, cannabis or heroin. Current Medications: Active Medications Generic Name Dose Route Start Last Admin Trade Name Caio PRN Reason Stop Dose Admin Amlodipine Besylate 5 mg 03/27/18 16:15 03/27/18 17:13 Norvasc PO 5 mg DAILY DEON Administration Aripiprazole 10 mg 03/27/18 22:00 Abilify PO HS DEON Gabapentin 300 mg 03/27/18 18:00 03/27/18 17:12 Neurontin PO 300 mg TID DEON Administration Hydroxyzine HCl 50 mg 03/26/18 22:27 Atarax PO Q6 PRN Anxiety Ibuprofen 400 mg 03/26/18 22:27 Motrin Tab PO Q8 PRN Arthritis Metformin HCl 500 mg 03/27/18 10:00 03/27/18 17:12 Glucophage PO 500 mg BID DEON Administration Nitrofurantoin Macrocrystals 100 mg 03/27/18 16:30 03/27/18 17:14 Macrobid PO 04/01/18 10:00 100 mg Q12H DEON Administration Protocol Paroxetine HCl 20 mg 03/27/18 16:30 03/27/18 17:13 Paxil PO 20 mg DAILY DEON Administration Pneumococcal Polyvalent Vaccine 0.5 ml 03/28/18 10:00 Pneumovax 23 Vaccine IM 03/28/18 10:01 .ONCE ONE Trazodone HCl 100 mg 03/26/18 22:30 03/26/18 22:42 Desyrel PO 100 mg HS DEON Administration Past Psychiatric History - Past Psychiatric History Previous Treatment History: Inpatient At [facility]: [facility] History of Abuse: None reported History of ETOH/Drug Use: See HPI History of Family Illness: None reported Pertinent Medical Hx (Current Medical&Sleep Prob, Allergies): Allergies Allergy/AdvReac Type Severity Reaction Status Date / Time No Known Allergies Allergy Verified 11/03/17 15:03 Paroxetine HCl [Paxil] 40 mg PO HS #14 tablet 05/11/17 buPROPion [Wellbutrin] 100 mg PO BID #30 tab 05/11/17 Alprazolam [Xanax] 0.5 mg PO BID 09/04/17 Calcium Carbonate/Vitamin D3 [Calcium 600 + Vit D Tablet] 1 each PO DAILY 09/04/17 Gabapentin [Neurontin] 300 mg PO TID #90 cap 09/20/17 amLODIPine [Norvasc] 5 mg PO DAILY #30 tab 09/20/17 metFORMIN [glucOPHAGE] 500 mg PO BID #60 tab 09/20/17 traZODone [Desyrel] 100 mg PO HS PRN #30 tab 09/20/17 ARIPiprazole [Abilify] 10 mg PO HS #30 tab 11/14/17 PARoxetine [Paxil] 20 mg PO QAM #30 tab 11/14/17 traZODone [Desyrel] 50 mg PO HS PRN #30 tab 11/14/17 Hypertension Diabetes mellitus Arthritis Review of Systems - Psychiatric Psychiatric: As Per HPI, Depression, Hopelessness, Suicidal Ideation Mental Status Examination - Personal Presentation Personal Presentation: Looks stated age - Affect Affect: Depressed - Motor Activity Motor Activity: Calm - Reliability in Providing Information Reliability in Providing Information: Fair - Speech Speech: Relevant - Mood Mood: Depressed - Formal Thought Process Formal Thought Process: No Impairment - Hallucinations/Delusions Hallucinations: Other (None reported) Delusions: Other - Obsessions/Compulsions Obsessions: None Compulsions: None - Cognitive Functions Orientation: Person, Place, Situation, Time Sensorium: Alert Attention/Concentration: Attentive Abstract Thinking: [place] Estimate of Intelligence: Average Judgement: Intact, as evidence by: Insight regarding need for hospitalization Memory: Recent intact, as evidence by: Ability to recall events of the day, Remote intact, as evidenced by: Ability to recall historical events - Risk Risk: Diminished functioning - Strength & Assets Inventory Strength & Assets Inventory: Cooperative - Limitations Limitations: Living alone DSM 5 DX - DSM 5 DSM 5 Diagnosis: Major depressive disorder recurrent severe without psychotic features - Recommended/Plan of Treatment Treatment Recommendations and Plan of Treatment: Patient education. Supportive therapy. We'll start discharge medications including Abilify, Paxil and other medications for her medical issues. Other when necessary medications. Patient wants to go back to [facility] for follow-up care after discharge from the hospital. Projected ELOS: 8-10 days - Smoking Cessation Smoking Cessation Initiated: No Reason for not providing: Patient doesn't smoke cigarettes
[2018-03-28] MEDS ORDERED: Pneumococcal 23-Valent Vaccine IM ONE (10:00)
--- NOTE | 2018-03-28 16:51 | PCM.PYCHPN ---
Psychiatric Progress Note - Psychiatric Progress Note Problems Identified/Issues Discussed: Patient seen, chart reviewed, case discussed with the staff. Issues related to illness and treatment were discussed with the patient and staff. Reported compliant with treatment with no adverse effects. Tolerating treatment very well. Reported feeling little better. Awake, alert and confused Calm and cooperative with good eye contact. Mood reported as depressed. Affect appropriate. Treatment discussed with the patient. Needs more time for stabilization. Aftercare discussed with the patient. Denied any delusions, auditory or visual hallucinations, suicidal ideations or homicidal ideations at the time of evaluation. Medical Problems: Hypertension Diabetes mellitus Arthritis Diagnostic Results: Reviewed DSM 5 Symptoms Update: Some improvement with treatment Medication Change: No Medical Record Reviewed: Yes Mental Status Examination - Cognitive Function Orientation: Person, Place, Situation, Time Memory: Intact Attention: WNL Concentration: WNL Association: WNL Fund of Knowledge: [facility] Decription of patient's judgement and insights: Fair - Mood Mood: Depressed - Affect Affect: Depressed - Speech Speech: Appropriate - Formal Thought Process Formal Thought Process: No Impairment Psychotic Thoughts and Behaviors: None - Suicidal Ideation Suicidal Ideation: No - Homicidal Ideation Homicidal Ideation: No Goal/Treatment Plan - Goal/Treatment Plan Need for Continued Stay: Remain at risks for inpatient hospitalization, Discharge may exacerbated symptoms, Severe functional impairment Progress Toward Problem(s) and Goals/Treatment Plan: Patient/staff education. Supportive therapy. Continue treatment as before. Patient wants to go to [facility] for follow-up care after discharge from the hospital. Estimated Date of D/C: 04/03/18 - Smoking Cessation Smoking Cessation Initiated: No Reason for not providing: Patient doesn't smoke cigarettes
--- NOTE | 2018-03-29 15:08 | PCM.PYCHPN ---
Psychiatric Progress Note - Psychiatric Progress Note Patient seen today, length of contact: 15 minutes Patient Chief Complaint: I'm not feeling better. Problems Identified/Issues Discussed: Patient seen, chart reviewed, case discussed with the staff. Issues related to illness and treatment were discussed with the patient and staff. Reported compliant with treatment with no adverse effects. Tolerating treatment very well. Reported not feeling better. Awake, alert and confused Calm and cooperative with good eye contact. Mood reported as depressed. Affect appropriate. Treatment discussed with the patient. Needs more time for stabilization. Aftercare discussed with the patient. Denied any delusions, auditory or visual hallucinations, suicidal ideations or homicidal ideations at the time of evaluation. Medical Problems: Hypertension Diabetes mellitus Arthritis Diagnostic Results: Reviewed Medication Change: No Medical Record Reviewed: Yes Mental Status Examination - Cognitive Function Orientation: Person, Place, Situation, Time Memory: Intact Attention: WNL Concentration: WNL Association: WNL Fund of Knowledge: [facility] Decription of patient's judgement and insights: Fair - Mood Mood: Depressed - Affect Affect: Depressed - Speech Speech: Appropriate - Formal Thought Process Formal Thought Process: No Impairment Psychotic Thoughts and Behaviors: None - Suicidal Ideation Suicidal Ideation: No - Homicidal Ideation Homicidal Ideation: No Goal/Treatment Plan - Goal/Treatment Plan Need for Continued Stay: Remain at risks for inpatient hospitalization, Discharge may exacerbated symptoms, Severe functional impairment Progress Toward Problem(s) and Goals/Treatment Plan: Patient/staff education. Supportive therapy. Continue treatment as before. Patient wants to go to [facility] for follow-up care after discharge from the hospital. Estimated Date of D/C: 04/03/18 - Smoking Cessation Smoking Cessation Initiated: No Reason for not providing: Patient doesn't smoke cigarettes
--- NOTE | 2018-03-30 17:27 | PCM.PYCHPN ---
Psychiatric Progress Note - Psychiatric Progress Note Patient seen today, length of contact: 15 minutes Patient Chief Complaint: I'm feeling little better. Problems Identified/Issues Discussed: Patient seen, chart reviewed, case discussed with the staff. Issues related to illness and treatment were discussed with the patient and staff. Reported compliant with treatment with no adverse effects. Tolerating treatment very well. Reported not feeling better. Awake, alert and confused Calm and cooperative with good eye contact. Mood reported as depressed. Affect inappropriate, appeared euthymic and social. Treatment discussed with the patient. Needs more time for stabilization. Aftercare discussed with the patient. Denied any delusions, auditory or visual hallucinations, suicidal ideations or homicidal ideations at the time of evaluation. Medical Problems: Hypertension Diabetes mellitus Arthritis Diagnostic Results: Reviewed DSM 5 Symptoms Update: Some improvement with treatment Medication Change: No Medical Record Reviewed: Yes Mental Status Examination - Cognitive Function Orientation: Person, Place, Situation, Time Memory: Intact Attention: WNL Concentration: WNL Association: WNL Fund of Knowledge: WN Decription of patient's judgement and insights: Fair - Mood Mood: Depressed - Affect Affect: Other (Euthymic) - Speech Speech: Appropriate - Formal Thought Process Formal Thought Process: No Impairment Psychotic Thoughts and Behaviors: None - Suicidal Ideation Suicidal Ideation: No - Homicidal Ideation Homicidal Ideation: No Goal/Treatment Plan - Goal/Treatment Plan Need for Continued Stay: Remain at risks for inpatient hospitalization, Discharge may exacerbated symptoms, Severe functional impairment Progress Toward Problem(s) and Goals/Treatment Plan: Patient/staff education. Supportive therapy. Continue treatment as before. Patient wants to go to [facility] for follow-up care after discharge from the hospital. Estimated Date of D/C: 04/03/18 - Smoking Cessation Smoking Cessation Initiated: No Reason for not providing: Patient doesn't smoke cigarettes
--- NOTE | 2018-03-31 16:53 | PCM.PYCHPN ---
Psychiatric Progress Note - Psychiatric Progress Note Patient seen today, length of contact: 15 minutes Patient Chief Complaint: I'm feeling better. Problems Identified/Issues Discussed: Patient seen, chart reviewed, case discussed with the staff. Issues related to illness and treatment were discussed with the patient and staff. Reported compliant with treatment with no adverse effects. Tolerating treatment very well. Reported feeling better. Awake, alert and oriented 3. Calm and cooperative with good eye contact. Mood reported as depressed. Affect inappropriate, appeared euthymic and social. Treatment discussed with the patient. Needs more time for stabilization. Aftercare discussed with the patient. Denied any delusions, auditory or visual hallucinations, suicidal ideations or homicidal ideations at the time of evaluation. Medical Problems: Hypertension Diabetes mellitus Arthritis Diagnostic Results: Reviewed DSM 5 Symptoms Update: Some improvement with treatment. Medication Change: No Medical Record Reviewed: Yes Mental Status Examination - Cognitive Function Orientation: Person, Place, Situation, Time Memory: Intact Attention: WNL Concentration: WNL Association: WNL Fund of Knowledge: WN Decription of patient's judgement and insights: Fair - Mood Mood: Depressed (Less than before) - Affect Affect: Other (Appropriate) - Speech Speech: Appropriate - Formal Thought Process Formal Thought Process: No Impairment Psychotic Thoughts and Behaviors: None - Suicidal Ideation Suicidal Ideation: No - Homicidal Ideation Homicidal Ideation: No Goal/Treatment Plan - Goal/Treatment Plan Need for Continued Stay: Remain at risks for inpatient hospitalization, Discharge may exacerbated symptoms, Severe functional impairment Progress Toward Problem(s) and Goals/Treatment Plan: Patient/staff education. Supportive therapy. Continue treatment as before. Patient wants to go to [facility] for follow-up care after dis charge from the hospital. Estimated Date of D/C: 04/03/18 - Smoking Cessation Smoking Cessation Initiated: No
[2018-04-01 06:48] VITALS: RESP 18
--- NOTE | 2018-04-01 12:34 | PCM.PYCHPN ---
Psychiatric Progress Note - Psychiatric Progress Note Patient seen today, length of contact: 15 minutes Patient Chief Complaint: "My stomach hurts" Problems Identified/Issues Discussed: The pt is seen, chart reviewed, case discussed with staff. The pt is compliant with medications and reports no side-effects. Symptoms are improving but needs more time to stabilize. Pt attends groups and activities. Support given, psycho-education provided. After care discussed. Medication Change: Yes (protonix) Medical Record Reviewed: Yes Mental Status Examination - Cognitive Function Orientation: Person, Place, Situation, Time Memory: Intact Attention: WNL Concentration: Poor Association: WNL Fund of Knowledge: WNL - Mood Mood: Depressed (Less than before) - Affect Affect: Broad - Speech Speech: Appropriate - Formal Thought Process Formal Thought Process: No Impairment - Suicidal Ideation Suicidal Ideation: No - Homicidal Ideation Homicidal Ideation: No Goal/Treatment Plan - Goal/Treatment Plan Need for Continued Stay: Severe depression anxiety, Discharge may exacerbated symptoms, Severe functional impairment Progress Toward Problem(s) and Goals/Treatment Plan: Continue medications Support and psychoeducation daily Attend groups and activities daily After care planning by MAGDA Estimated Date of D/C: 04/03/18
[2018-04-01] MEDS: Pantoprazole 20 mg EC Tab PO SCH (13:03)
[2018-04-02] MEDS: Pantoprazole 20 mg EC Tab PO SCH (10:21)
--- NOTE | 2018-04-02 14:13 | PCM.PYCHPN ---
Psychiatric Progress Note - Psychiatric Progress Note Patient seen today, length of contact: 15 minutes Patient Chief Complaint: I'm feeling better. Problems Identified/Issues Discussed: Patient seen, chart reviewed, case discussed with the staff. Issues related to illness and treatment were discussed with the patient and staff. Reported compliant with treatment with no adverse effects. Tolerating treatment very well. Reported feeling little better. Also reported feeling some abdominal pain. According to staff patient was okay, not complaining about any thing, was very social. Awake, alert and oriented 3. Calm and cooperative with good eye contact. Mood reported as depressed. Affect inappropriate, appeared euthymic. Treatment discussed with the patient. Needs more time for stabilization. Aftercare discussed with the patient. Denied any delusions, auditory or visual hallucinations, suicidal ideations or homicidal ideations at the time of evaluation. Medical Problems: Hypertension Diabetes mellitus Arthritis Diagnostic Results: Reviewed DSM 5 Symptoms Update: Improving with treatment Medication Change: No Medical Record Reviewed: Yes Mental Status Examination - Cognitive Function Orientation: Person, Place, Situation, Time Memory: Intact Attention: WNL Concentration: WNL Association: WN Fund of Knowledge: [facility] Decription of patient's judgement and insights: Fair - Mood Mood: Depressed (Much less than before) - Affect Affect: Other (Appeared euthymic) - Speech Speech: Appropriate - Formal Thought Process Formal Thought Process: No Impairment Psychotic Thoughts and Behaviors: None - Suicidal Ideation Suicidal Ideation: No - Homicidal Ideation Homicidal Ideation: No Goal/Treatment Plan - Goal/Treatment Plan Need for Continued Stay: Remain at risks for inpatient hospitalization, Discharge may exacerbated symptoms, Severe functional impairment Progress Toward Problem(s) and Goals/Treatment Plan: Patient/staff education. Supportive therapy. Continue treatment as before. Patient wants to go to [facility] for follow-up care after discharge from the hospital. Estimated Date of D/C: 04/03/18 - Smoking Cessation Smoking Cessation Initiated: No Reason for not providing: Patient doesn't smoke cigarettes.
[2018-04-02 16:45] VITALS: PULSE 68
[2018-04-03 06:46] VITALS: BP 89/54; TEMP 97.6
--- NOTE | 2018-04-03 18:57 | PCM.PYCHDC ---
Mental Status Examination - Mental Status Examination Orientation: Person, Place, Situation, Time Memory: Intact Mood: Neutral Affect: Other (Appropriate) Speech: Appropriate Attention: WNL Concentration: WNL Association: WNL Fund of Knowledge: WNL Formal Thought Process: No Impairment Description of patient's judgement and insight: Fair Psychotic Thoughts and Behaviors: None Suicidal Ideation: No Current Homicidal Ideation?: No Discharge Summary - Discharge Note Reason for Hospitalization: Major depressive disorder recurrent severe without psychotic features Laboratory Data: Abnormal Lab Results 04/03/18 07:32 POC Glucose (mg/dL) 90 Consultations:: List each consultation separately and include: 1. Reason for request. 2. Findings. 3. Follow-up Summary of Hospital Course include:: 1. Description of specific treatment plan utilized for patients during their course of treatmen. 2. Summarize the time- course for resolution of acute symptoms and/or regressed behaviors. 3. Describe issues identified and worked on during hospitalization. 4. Describe medication utilized. 5. Describe medical problems identified and treated. 6. Reassessment of suicide risk Summary of Hospital Course: Patient is a 62 years old, single, unemployed, on disability, -[place] female with history of major depressive disorder, noncompliant with treatment was admitted due to worsening of depression and passive suicidal ideations with no plan. Patient reported that she had followed up at [facility] briefly, didn't have follow-up. Ran out of medication, started feeling depressed. Patient was unable to identify any event that may have triggered her worsening of depressive symptoms. She does not know the name of her mediations. She states she occasionally thinks of suicide by pill ingestion but has never acted on her thoughts. Associated symptoms include poor sleep, low energy during the day, loss of focus, and hearing her father calling her name at times. Denies visual hallucinations and paranoia. Denied any manic or anxiety symptoms. Denied any substance use including alcohol, cocaine, cannabis or heroin. During her stay in the hospital patient was treated with Abilify, gabapentin, Paxil and other when necessary medications. Patient was attending groups and other activities on the unit. With above treatment patient started feeling better. Today patient was stable and ready for discharge. At the time of evaluation and discharge, patient was awake alert oriented 3, had no delusions, no auditory or visual hallucinations, no suicidal ideations or homicidal ideations. Patient was discharged in a stable condition. Patient will have follow-up at [facility]. - Diagnosis (1) Major depressive disorder, recurrent severe without psychotic features Status: Acute - Final Diagnosis (DSM 5) Condition upon Discharge: FAIR Disposition: HOME/ ROUTINE Follow-up Treatment Plan: Patient wants to go to [facility] for follow-up care after discharge from the hospital. Prescriptions/Medication Reconciliation: ARIPiprazole [Abilify] 10 mg PO HS #30 tab Gabapentin [Neurontin] 300 mg PO TID #90 cap Nitrofurantoin Macrocrystals [Macrobid] 100 mg PO Q12H #7 cap PARoxetine [Paxil] 20 mg PO DAILY #30 tab traZODone [Desyrel] 100 mg PO HS #30 tab - Smoking Cessation Smoking Cessation Medication prescribed: No Reason for not providing: Patient doesn't smoke cigarettes - Antipsychotic Medications Pt discharged on 2 or more routine antipsychotic medications: No
== END 2018-04-03 11:37 | disposition home or self-care (01) | DRG 885 ==
LOC: C.ER 16:53 → C.5E 20:01
PROVIDERS: ADMIT Psychiatry & Neurology Psychiatry; ATTEND Psychiatry & Neurology Psychiatry
PROC: GZHZZZZ Group Psychotherapy (ICD-10-PCS; principal; 2018-03-26)
PROC: GZ58ZZZ Individual Psychotherapy, Cognitive-Behavioral (ICD-10-PCS; 2018-03-26)
PROC: GZ56ZZZ Individual Psychotherapy, Supportive (ICD-10-PCS; 2018-03-26)
DX: F33.2 Major depressive disorder, recurrent severe without psychotic features (principal); R45.851 Suicidal ideations; E11.9 Type 2 diabetes mellitus without complications; F41.9 Anxiety disorder, unspecified; I10 Essential (primary) hypertension; M19.90 Unspecified osteoarthritis, unspecified site; Z91.14 Patient's other noncompliance with medication regimen